=== PATIENT | female | born 1950 | race Caucasian/White ===

== ENCOUNTER → 2017-10-25 | Outpatient (CLI) | payer OTHER ==
[2017-10-25] MEDS: LIDOCAINE 1% Multi-Dose 20 ML VIAL. ID (13:15)
[2017-10-25] MEDS: BUPIVACAINE MPF 0.5% 10 ML VIAL for KCIC. IJ (13:15)
[2017-10-25] MEDS: methylPREDNISolone ACETATE 40 MG/ML VIAL. INT ART (13:15)
[2017-10-25] MEDS: IOHEXOL 300 MG/ML 50 ML VIAL. INT ART (13:15)
== END | disposition home or self-care (01) ==
LOC: KCIC 12:14
DX: M25.552 Pain in left hip (principal); G89.29 Other chronic pain
CPT/HCPCS: 20610; 77002; J1030; Q9967

== ENCOUNTER → 2018-02-12 | Outpatient (CLI) | payer MEDICARE, OTHER ==
[2018-02-12 10:36] LABS: ADD MAN DIFF? NO
[2018-02-12 10:44] LABS: BASO # 0.1 x10^3/uL (0.0-0.2); BASO % 1 % (0-3); EOS # 0.4 x10^3/uL (0.0-0.7); EOS % 9 % (0-3); HEMOGLOBIN 12.9 g/dL (12.0-15.5); LYMPH # 1.1 x10^3/uL (1.0-4.8); LYMPH % 22 % (24-48); MEAN CORPUSCULAR HEMOGLOBIN 32 pg (25-35); MEAN CORPUSCULAR HGB CONC 35 g/dL (31-37); MEAN CORPUSCULAR VOLUME 92 fL (79-100); MONO # 0.4 x10^3/uL (0.0-1.1); MONO % 9 % (0-9); NEUT % 60 % (31-73); PLATELET COUNT 209 x10^3/uL (140-400); RED BLOOD COUNT 4.02 x10^6/uL (3.50-5.40)
[2018-02-12 11:09] LABS: ALBUMIN 3.8 g/dL (3.4-5.0); BLOOD UREA NITROGEN 13 mg/dL (7-20); CALCIUM 8.6 mg/dL (8.5-10.1); CREATININE 0.9 mg/dL (0.6-1.0); GFR 62.8; GLUCOSE 112 mg/dL (70-99); POTASSIUM 4.5 mmol/L (3.5-5.1); SODIUM 138 mmol/L (136-145)
[2018-02-12 11:10] LABS: ANION GAP 11 (6-14); CARBON DIOXIDE 22 mmol/L (21-32); CHLORIDE 105 mmol/L (98-107); PARTIAL THROMBOPLASTIN TIME 25 SEC (24-38); PROTHROMBIN TIME PATIENT 12.7 SEC (11.7-14.0)
[2018-02-12 11:34] LABS: BILIRUBIN,URINE NEGATIVE (NEG); CLARITY,URINE CLEAR; COLOR,URINE YELLOW; GLUCOSE,URINE NEGATIVE (NEG); NITRITE,URINE NEGATIVE (NEG); PH,URINE 5.5; PROTEIN,URINE NEGATIVE (NEG-TRACE); UROBILINOGEN,URINE 0.2 mg/dL (0.2 mg/dL)
[2018-02-12 11:46] LABS: BACTERIA,URINE 0 /HPF (0-FEW); RBC,URINE 0 /HPF (0-2); WBC,URINE 0 /HPF (0-4)
[2018-02-12 12:43] LABS: SEDIMENTATION RATE 4 (0-25)
[2018-02-13 08:34] LABS: MRSA BY PCR Negative (Negative)
== END | disposition home or self-care (01) ==
LOC: SURGPAT 09:18
DX: Z01.818 Encounter for other preprocedural examination (principal); M17.12 Unilateral primary osteoarthritis, left knee; E78.5 Hyperlipidemia, unspecified; E78.00 Pure hypercholesterolemia, unspecified; K21.9 Gastro-esophageal reflux disease without esophagitis; F32.9 Major depressive disorder, single episode, unspecified
CPT/HCPCS: 36415; 71046; 80048; 81001; 82040; 82306; 85025; 85610; 85651; 85730; 87641; 93005

== ENCOUNTER 2018-03-06 05:39 | Inpatient (IN) | payer MEDICARE, OTHER ==
--- NOTE | 2018-03-05 15:03 | PDOC1 ---
History and Physical Date of Admission Date of Admission DATE: 03/06/18 Identification/Chief Complaint Chief Complaint right knee osteoarthritis pain Source Source: Chart review History of Present Illness History of Present Illness The patient is a 67 y/o female with right knee osteoarthritis pain. She finished an Orthovisc series on 01.04.2018, which did not provide much symptomatic relief. She ambulates without assistive devices. The knee pain is constant and she states it aches all the time. She has a history of a left total knee arthroplasty on 05.10.16, which is doing well. Past Medical History Past Medical History Schwannoma and causalgia of RLE Cardiovascular: HTN, Hyperlipidemia GI: GERD Psych: Anxiety, Depression Musculoskeletal: Osteoarthritis Past Surgical History Past Surgical History: Mastectomy, Total knee replacement (left - 05/10/16), Hysterectomy, Other (CTR, TRF) Family History Family History: Cancer, Diabetes, Osteo Arthiritis, Other (osteoporosis ) Social History Smoke: No ALCOHOL: none Drugs: None Current Medications Current Medications Current Medications Morphine Sulfate 5 mg/Ketorolac Tromethamine 30 mg/Ropivacaine 60 ml/ Epinephrine HCl 0.5 mg/Sodium Chloride 100 ml @ 100 mls/hr 1X ONCE INT ART ; Start 03/06/18 at 06:00; Stop 03/06/18 at 06:59 Active Scripts Active Reported Lyrica (Pregabalin) 75 Mg Capsule 1 Cap PO DAILY PRN Ibuprofen 800 Mg Tablet 800 Mg PO BID PRN Lamotrigine 150 Mg Tablet 2 Tab PO HS Bupropion Xl (Bupropion Hcl) 150 Mg Tab.er.24h 1 Tab PO DAILYWBKFT Seroquel (Quetiapine Fumarate) 200 Mg Tablet 1 Tab PO QHS Losartan Potassium 100 Mg Tablet 100 Mg PO DAILY Paroxetine Hcl 20 Mg Tablet 25 Mg PO DAILY Allergies Allergies: Coded Allergies: No Known Drug Allergies (Unverified , 05/10/16) Physical Exam General: Alert, Oriented X3, Cooperative, No acute distress HEENT: Atraumatic, EOMI Lungs: Normal air movement Heart: RRR Abdomen: Soft Extremities: No clubbing, No cyanosis, No edema, Normal pulses, Other (RIGHT KNEE: Palpable transmitter device in medial soft tissues. Trce effusion. Tenderness on the medial and lateral joint lines. Range of motion is 5-115 degrees. There is crepitus with range of motion, and pain at the extremes of motion. The knee is stable to varus and valgus stress without subluxation or laxity. Muscle strength is normal (5/5) for quadriceps and hamstrings, and muscle tone is normal. The skin is normal with no scars, rashes, lesions or ulcers. Light touch sensation is intact. No edema and no varicosities. Dorsalis pedis pulse is intact and capillary refill is normal. ) Skin: No rashes, No breakdown, No significant lesion Neuro: Normal speech, Sensation intact Psych/Mental Status: Mental status NL, Mood NL Images Images IMAGING REPORT Joint survey, hips knees and ankles Clinical information: Preoperative for total knee arthroplasty Comparison: 04/18/2016 Findings Bones: The angle between the right hip-ankle mechanical axis and the femoral shaft is 5 degrees. The angle between the left hip-ankle mechanical axis and the femoral shaft is 5 degrees. From hip to ankle, the right lower extremity is in near normal alignment, perhaps 0.5 degrees varus. From hip to ankle, the left lower extremity is in 2 valgus, near normal alignment compared to the 2016 film which showed severe varus malalignment. Joints: There is mild narrowing of the right knee joint medially. The prior severely arthritic varus left knee now has a total knee arthroplasty in good alignment. The hips and ankles show minimal degenerative changes. Soft tissue: Subcutaneous metallic electronic device is seen running the entire course of the right lower extremity. This is unchanged from 2016. Impression: Trace varus alignment of the right knee. Left total knee arthroplasty. The difference between the mechanical axis and femoral shaft anatomic axis is 5 degrees bilaterally. Subcutaneous electronic device right lower extremity. Dictated and Signed Using Voice Recognition Software Patrick Stark MD VTE Prophylaxis Ordered VTE Prophylaxis Devices: Yes VTE Pharmacological Prophylaxi: Yes Assessment/Plan Assessment/Plan Right knee osteoarthritis pain. The patient is a 67 year old female with right knee osteoarthritis. She would like to proceed with total knee replacement. We will send her to the [facility] preoperatively, and she will schedule at her convenience. We discussed the risks and benefits of knee replacement including bleeding, infection, post-operative stiffness, instability, edelmira-prosthetic fracture, DVT and PE. I plan to do bipolar cautery due to the transmitter in her right lower extremity. I explained that there is a risk of the transmitter being damaged during surgery. All questions were answered. She would like to proceed with the surgery to improve her pain and range of motion. Follow up with me 10-14 days after surgery. QUINTEN WEBER Mar 05, 2018 15:03
[~2018-03-06] VITALS: Ht 172.7 cm; Wt 76.2 kg
[~2018-03-06 05:39] MED LIST: ALPR1TAB2 PO; ASPI-252 PO; BUPR150T6 PO; CELE200C PO; FAMO-63 PO; FERR325T14 PO; FLUT9.9S NS; IBUP-1060 PO; LAMO150T2 PO; LAMO300T2 PO; LORA10TA68 PO; LOSA100T6 PO; LOSA25TA4 PO; OXCA150T3 PO; OXYC-323 PO; PARO20TA3 PO; PARO25TA3 PO; PREG150C PO; PREG75CA PO; QUET200T4 PO; QUET300T5 PO; TOBRAMYCIN POWDER 1.2 GM VIAL. ONE; VANCOMYCIN 1 GM VIAL. ONE
[2018-03-06] MEDS ORDERED: MORPHINE SULFATE 5 MG, KETOROLAC 30MG VIAL 30 MG, ROPIVacaine 0.5% PF 60 ML, EPINEPHrin... INT ART ONE ×5 (06:00)
[2018-03-06] MEDS ORDERED: HYDROcodone/APAP 7.5/325MG 1 TAB TABLET PO PRN (06:00)
[2018-03-06] MEDS ORDERED: CELECOXIB 100 MG CAPSULE. PO PRN (06:00)
[2018-03-06] MEDS ORDERED: TRANEXAMIC ACID 1,000 MG in IV NS 50ML -- 1ST BAG INJ ONE (06:00)
[2018-03-06] MEDS ORDERED: CELE200C PO (06:45)
[2018-03-06] MEDS ORDERED: MIDAZOLAM HCL/PF 2 MG/2 ML VIAL. ONE (06:47)
[2018-03-06] MEDS ORDERED: PROPOFOL 20 ML IV ONE (06:47)
[2018-03-06] MEDS ORDERED: fentaNYL PF VIAL 250 MCG/5 ML VIAL ONE (06:47)
[2018-03-06] MEDS ORDERED: LIDOCAINE 2% PF Vial for OR 5 ML VIAL. ONE (06:47)
[2018-03-06] MEDS ORDERED: PROCHLORPERAZINE 10 MG/2 ML VIAL. IV PRN ×2 (07:00→09:45)
[2018-03-06] MEDS ORDERED: fentaNYL PF VIAL 100 MCG/2 ML VIAL IV PRN ×3 (07:00→09:45)
[2018-03-06] MEDS ORDERED: LIDOCAINE 1% PF 2 ML VIAL. ID PRN (07:00)
[2018-03-06] MEDS ORDERED: IV RINGERS,LACTATED 1000ML 1,000 ML IV SCH (07:00)
[2018-03-06] MEDS ORDERED: ONDANSETRON PF 4 MG/2 ML VIAL. IV PRN (07:00)
[2018-03-06] MEDS ORDERED: ePHEDrine PF IN SALINE 50 MG/5 ML DISP.SYRIN IV ONE (07:30)
[2018-03-06] MEDS ORDERED: PHENYLEPHRINE in 0.9% NACL PF 1 MG/10 ML SYRINGE. IV ONE (07:43)
[2018-03-06] MEDS ORDERED: LABETALOL 20 MG/4 ML DISP.SYRIN. IVP ONE (07:59)
[2018-03-06] MEDS ORDERED: TRANEXAMIC ACID 1,000 MG in IV NS 50ML -- 2ND BAG INJ ONE (08:00)
[2018-03-06] MEDS ORDERED: DEXAMETHASONE SOD PHOS 20 MG/5 ML VIAL. ONE (08:14)
[2018-03-06] MEDS ORDERED: ONDANSETRON PF 4 MG/2 ML VIAL. ONE (08:14)
[2018-03-06] MEDS ORDERED: dilTIAZem IV PUSH 25 MG/5 ML VIAL ONE (08:23)
[2018-03-06] MEDS ORDERED: ESMOLOL 100 MG/10 ML VIAL. IV ONE (09:04)
--- NOTE | 2018-03-06 09:31 | PDOC4 ---
Operative Note Operative Note Date of Procedure: March 06, 2018 Pre-Op Diagnosis: Osteoarthritis right knee Post-Op Diagnosis: Osteoarthritis right knee Procedure: right total knee arthroplasty Surgeon: Chrissy Stark MD Mobile Web Application Developer: Casandra Ramos PA-C Anesthesia: General EBL: 150 mL Specimens Obtained: right knee bone and soft tissue Complications: none Implant Company: [employer] Drains: hemovac plus pain catheter Tourniquet time: 51 Minutes Tourniquet Pressure: 350 mm Hg Indications for Procedure: Arthritis pain unrelieved by nonoperative management. Findings: Severe osteoarthritis with bone on bone contact at the patellofemoral joint, and at the medial tibiofemoral joint, with high grade cartilage loss in all three compartments Implants used: Size 4 right bicruciate stabilized Journey II BCS Oxinium femoral component, size 4 right Journey nonporous tibial baseplate, size 3-4 9 mm right Journey II BCS XLPE articular insert, 32 mm oval Nevaeh II resurfacing patellar component Procedure in Detail: The patient was identified in the preoperative holding area, and the correct right lower extremity was marked by me. The patient was taken to the operating room where the patient was anesthetized by the Department of Anesthesia. Preoperative antibiotics were given intravenously. Tranexamic acid 1 g was given intravenously for intraoperative hemostasis. A "time-out" procedure was performed. The patient was positioned supine on the operative table with a tourniquet on the upper right thigh. The right lower limb was thoroughly prepped and draped in sterile fashion. An impervious stockinet and adhesive drape were used such that the skin was entirely covered. An Vogt leg arroyo was used. The operating team wore personal exhaust-ventilated hoods. The limb was elevated to exsanguinate it, and the tourniquet was inflated. A midline skin incision was made with a scalpel using the patella and tibial tubercle as landmarks. Bipolar electrocautery was used for hemostasis to avoid injury from her implanted nerve stimulator. My assistant fitness manager used rake retractors. A medial parapatellar arthrotomy incision was used with extension into the distal quadriceps tendon. The patella was retracted laterally and Hohmann retractors were now used by my assistant fitness manager. Excess synovium, the menisci, and the cruciate ligaments were resected sharply. The patella was assessed and excess synovium and osteophytes around the patellar articulation were removed. The patella was measured with a caliper, cut freehand with a saw using caliper measurements, sized, and then drilled for an oval three-pegged patella component. Periarticular anesthetic injection was used in the suprapatellar pouch and distal quadriceps muscle. Whitesides's line and the transepicondylar axis were marked on the femur. An intra-medullary 5 degree cutting guide was pinned to the femur, and a distal femoral cut was made with an oscillating saw. No additional distal femoral resection was required. My assistant fitness manager held Hohmann retractors and an Army-Carrington retractor to protect the medial and lateral collateral ligaments, the patellar tendon, the skin and the other soft tissues. A posterior referencing guide was applied with external rotation of 5 to match Whitesides line. A 5-in-1 Journey II cutting guide was then applied and pinned to the femur. The posterior, anterior, and all chamfer cuts were made with the oscillating saw. An extramedullary guide was pinned to the tibia and rotational alignment and the planned resection thickness assessed. An external alignment bernardino was used to verify the planned cut in the varus-valgus plane and regarding posterior slope referencing the tibial tubercle, the tibial shaft, the ankle joint, and the second metatarsal. The upper tibia was cut made with an oscillating saw. My assistant fitness manager held Hohmann retractors and a posterior cruciate ligament retractor to protect the medial and lateral collateral ligaments, the patellar tendon, the skin, the peroneal nerve and the other soft tissues as well as the stimulator. The upper tibia was sized with a trial baseplate. The posterior compartment was cleared of osteophytes and loose bodies. Periarticular anesthetic injection was used in the posterior compartment. The box cut for a posterior stabilized component was made. A preliminary reduction was performed with a trial femur, trial tibial baseplate and trial polyethylene. Soft-tissue balancing was now performed, and extension and rotation of the alignments was checked using a guide bernardino in the tibial trial and a guide pin in the femur. No additional releases were required. The stability was assessed using different thicknesses of tibial articular surface to find satisfactory stability and good range of motion. The rotation of the tibial component was marked on the upper tibia. Final trial reduction was now performed verifying patella tracking and tibiofemoral stability and alignment. The tibia preparation was completed with a drill, saw, and fin punch at the previously noted rotation. The final implants were verified and opened. Outer gloves were changed by the operating team. The bone cuts were washed thoroughly with the Blanche InterPulse device and dried. I asked Ms. Ramos to leave the room while the cement was mixed. Two packages of Plummer + Nephew Rally HV bone cement were mixed in powdered form with Vancomycin 1gm and Tobramycin 1.2 gm, and then vacuum-mixed with the monomer, and placed into a cement gun. The cut surfaces of the bone were thoroughly dried with Arias-tip suction and with laparotomy sponges for cement interdigitation. The final components were cemented into place. The knee was kept at full extension while the cement hardened, and excess cement was removed. Tranexamic acid 1 g was redosed intravenously for additional intraoperative hemostasis. The tourniquet was released, and bipolar electrocautery was used for hemostasis. A final periarticular anesthetic injection was used for pain relief. Richard returned. A final check of trhcb-dx-fkyftm and stability was made, and the polyethylene implant final size was chosen. The polyethylene implant was secured to the tibial baseplate, and the knee was reduced a final time and range of motion and stability was confirmed. Thorough irrigation was used. Hemovac and pain catheter were used.The arthrotomy was closed with interrupted tugkhf-ub-lwsls # 1 PDS suture. The arthrotomy incision was then run with #1 STRATAFIX Symmetric PDS Plus Knotless suture. The subcutaneous tissues were closed with #2-0 Vicryl by Ms. Ramos. The skin was approximated with oniel by Ms Ramos. The skin incision was then covered and reinforced with Acticoat and KARLA single use negative pressure dressing, all applied by Ms. Ramos. Needle and sponge counts were correct. There were no apparent complications. The patient returned to the recovery room in stable condition. CHRISSY STARK MD Mar 06, 2018 09:31
[2018-03-06] MEDS ORDERED: SEVOFLURANE 61 TO 120 MINUTES. IH ONE (09:32)
[2018-03-06] MEDS ORDERED: ZOLPIDEM 5 MG TABLET. PO PRN (09:45)
[2018-03-06] MEDS ORDERED: ACETAMINOPHEN 325 MG TABLET. PO PRN (09:45)
[2018-03-06] MEDS ORDERED: traMADol 50 MG TABLET PO PRN ×2 (09:45)
[2018-03-06] MEDS ORDERED: MORPHINE SULFATE 2 MG/ML VIAL. IV PRN (09:45)
[2018-03-06] MEDS ORDERED: diphenhydrAMINE 50 MG/ML VIAL IV PRN (09:45)
[2018-03-06] MEDS ORDERED: MORPHINE SULFATE 10 MG/ML VIAL. IV PRN (09:45)
[2018-03-06] MEDS ORDERED: oxyCODONE/APAP 7.5/325 1 TAB TABLET PO PRN (09:45)
[2018-03-06] MEDS ORDERED: MORPHINE SULFATE 4 MG/ML VIAL. IV PRN ×2 (09:45)
[2018-03-06] MEDS ORDERED: CALCIUM CARBONATE 500 MG TAB.CHEW PO PRN (09:45)
[2018-03-06] MEDS ORDERED: DEXTROSE 50% 25 GM / 50ML DISP.SYRIN. IV PRN (09:45)
[2018-03-06] MEDS ORDERED: METOCLOPRAMIDE HCL 10 MG/2 ML VIAL. IV PRN (09:45)
[2018-03-06] MEDS: IV DEXTROSE 5 %-0.45 % NACL 1,000 ML IV SCH ×2 (09:45→19:58)
[2018-03-06] MEDS ORDERED: oxyCODONE/APAP 5/325 1 TAB TABLET PO PRN (09:45)
[2018-03-06] MEDS ORDERED: HYDROcodone/APAP 10/325 1 TAB TABLET PO PRN (09:45)
[2018-03-06] MEDS ORDERED: PROCHLORPERAZINE 5 MG TABLET. PO PRN (09:45)
[2018-03-06] MEDS ORDERED: 0.9 % SODIUM CHLORIDE 10 ML DISP.SYRIN. IV PRN (09:45)
--- NOTE | 2018-03-06 10:04 | EKG ---
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
[2018-03-06 10:10] LABS: CALCIUM 8.3 mg/dL (8.5-10.1); CREATININE 0.9 mg/dL (0.6-1.0); GFR 62.8; POTASSIUM 4.4 mmol/L (3.5-5.1)
[2018-03-06] MEDS: MORPHINE SULFATE 2 MG/ML VIAL. IV PRN ×2 (10:26→11:12)
--- NOTE | 2018-03-06 10:44 | RAD ---
EXAM: AP and crosstable lateral views of the right knee DATE: 03/06/2018 10:16 AM INDICATION: POST OP RIGHT KNEE REPLACEMENT COMPARISON: 05/10/2016 FINDINGS: Postoperative changes of right total knee arthroplasty are now seen, in good alignment without definite hardware application. Expected postoperative soft tissue changes are seen including drain and skin oniel. No evidence of acute fracture or dislocation. IMPRESSION: 1. Right total knee arthroplasty, in good alignment without definite hardware complication or fracture. Electronically signed by: Wellington Paniagua MD (03/06/2018 10:40 AM) [facility]
[2018-03-06 11:13] LABS: BASO # 0.1 x10^3/uL (0.0-0.2); BASO % 1 % (0-3); EOS # 0.2 x10^3/uL (0.0-0.7); EOS % 2 % (0-3); HEMATOCRIT 37.8 % (36.0-47.0); HEMOGLOBIN 12.9 g/dL (12.0-15.5); LYMPH # 2.1 x10^3/uL (1.0-4.8); LYMPH % 20 % (24-48); MEAN CORPUSCULAR HEMOGLOBIN 32 pg (25-35); MEAN CORPUSCULAR HGB CONC 34 g/dL (31-37); MEAN CORPUSCULAR VOLUME 95 fL (79-100); MONO # 0.3 x10^3/uL (0.0-1.1); MONO % 3 % (0-9); NEUT # 7.6 x10^3uL (1.8-7.7); NEUT % 73 % (31-73); PLATELET COUNT 214 x10^3/uL (140-400); RED CELL DISTRIBUTION WIDTH 13.8 % (11.5-14.5); WHITE BLOOD COUNT 10.4 x10^3/uL (4.0-11.0)
[2018-03-06] MEDS ORDERED: METOPROLOL TARTRATE 5 MG/5 ML VIAL. IVP PRN (11:30)
[2018-03-06] MEDS: fentaNYL PF VIAL 100 MCG/2 ML VIAL IV PRN (12:20)
[2018-03-06 12:25] VITALS: BP 140/95
[2018-03-06] MEDS ORDERED: METOPROLOL TART IMMED RELEASE 25 MG TABLET. PO ONE (12:30)
--- NOTE | 2018-03-06 12:38 | PDOC2 ---
CARDIAC CONSULT DATE OF CONSULT Date of Consult DATE: 03/06/18 TIME: 1100 REASON FOR CONSULT Reason for Consult: AFIB RVR new onset REFERRING PHYSICIAN Referring Physician: Petra SOURCE Source: Chart review, Patient HISTORY OF PRESENT ILLNESS HISTORY OF PRESENT ILLNESS This is a pleasant 67 yo female admitted for planned RTKA. The surgery was successful and currently she is drowsy but arousable and Ox3 and surgical pain is controlled. Postoperatively she was noted with tachycardia and afib was confirmed. His HR was in the 130s and 140s and was given cardizem IV bolus. I evaluated her and provided IV lopressor since no significant response to cardizem. Presently denies any SOA, CP nor palpiations. Denies any prior hx of AFIB, CVA, clotting disorders or bleeding disorders. She does not take any ASA but takes losartan, lamictal, wellbutrin and lyrica. Denies any ETOH, tobacco or recreational drug use and no hx of excessive caffeine use nor stimulants. She has not seen a director clinical applications before. PAST MEDICAL HISTORY Cardiovascular: HTN, Hyperlipidemia Pulmonary: No pertinent hx CENTRAL NERVOUS SYSTEM: Periperal neuropathy, Other (No pertinent history) Heme/Onc: No pertinent hx, Cancer (breast) Hepatobiliary: No pertinent hx Psych: Anxiety, Bipolar, Depression Musculoskeletal: Osteoarthritis Rheumatologic: No pertinent hx Infectious disease: No pertinent hx ENT: Allergic Rhinitis, Other (sinusitis) Renal/: No pertinent hx Endocrine: No pertinent hx Dermatology: No pertinent hx PAST SURGICAL HISTORY Past Surgical History: Arthroscopy (right ankle surgery), Mastectomy (left ), Total knee replacement (Left and right), Tonsillectomy, Hysterectomy FAMILY HISTORY Family History noncontributory to CV SOCIAL HISTORY Smoke: No ALCOHOL: none Drugs: None Lives: with Family CURRENT MEDICATIONS CURRENT MEDICATIONS Current Medications Medications (Trade) Dose Ordered Sig/Dali Route PRN Reason Start Time Stop Time Status Last Admin Dose Admin Morphine Sulfate 5 mg/Ketorolac Tromethamine 30 mg/Ropivacaine 60 ml/Epinephrine HCl 0.5 mg/Sodium Chloride 100 ml @ 100 mls/hr 1X ONCE INT ART 03/06/18 06:00 03/06/18 06:59 DC 03/06/18 08:56 Morphine Sulfate (Morphine Sulfate) 1 mg PRN Q10MIN PRN IV SEVERE PAIN 03/06/18 07:00 03/07/18 06:59 03/06/18 11:12 Ringer's Solution 1,000 ml @ 30 mls/hr Q24H IV 03/06/18 07:00 03/06/18 18:59 03/06/18 06:45 Acetaminophen/ Hydrocodone Bitart (Lortab 7.5/325) 2 tab 1X PREOP PRN PO PRIOR TO PROCEDURE 03/06/18 06:00 03/06/18 18:00 03/06/18 06:48 Cefazolin Sodium/ Dextrose 50 ml @ 100 mls/hr 1X PREOP PRN IV PRIOR TO PROCEDURE 03/06/18 06:00 03/06/18 18:00 03/06/18 07:28 Tranexamic Acid 1000 mg/Sodium Chloride 60 ml @ 60 mls/hr 1X PERIOP ONCE INJ 03/06/18 06:00 03/06/18 06:59 DC 03/06/18 07:35 Tranexamic Acid 1000 mg/Sodium Chloride 60 ml @ 60 mls/hr 1X PERIOP ONCE INJ 03/06/18 08:00 03/06/18 08:59 DC 03/06/18 07:35 Acetaminophen/ Hydrocodone Bitart (Lortab 10/325) 1 tab PRN Q3HRS PRN PO MODERATE PAIN, 2nd CHOICE 03/06/18 09:45 03/06/18 12:20 Fentanyl Citrate (Fentanyl 2ml Vial) 50 mcg PRN Q1HR PRN IV PAIN, 2nd CHOICE 03/06/18 09:45 03/06/18 12:20 Metoprolol Tartrate (Lopressor Vial) 5 mg 1X PACU PRN IVP TACHYCARDIA 03/06/18 11:30 03/06/18 11:09 Metoprolol Tartrate (Lopressor) 25 mg 1X ONCE PO 03/06/18 12:30 03/06/18 12:31 03/06/18 12:21 ALLERGIES ALLERGIES: Coded Allergies: No Known Drug Allergies (Unverified , 03/06/18) ROS Review of System 14 point ROS evaluated with pertinent positives noted per HPI PHYSICAL EXAM General: Oriented X3, Cooperative, No acute distress, Other (drowsy) HEENT: Atraumatic, Mucous membr. moist/pink Lungs: Clear to auscultation, Normal air movement Heart: Other (AFIB RVR) Abdomen: Soft, No tenderness Extremities: No cyanosis, No edema Skin: No breakdown, No significant lesion, Other (right knee surgical incision wrapped and with hemovac drain with sanguinous drain. ) Neuro: Normal speech, Sensation intact Psych/Mental Status: Mental status NL, Mood NL MUSCULOSKELETAL: Osteoarthritic changes both hands VITALS VITALS Vital Signs Date Time Temp Pulse Resp B/P (MAP) Pulse Ox O2 Delivery O2 Flow Rate FiO2 03/06/18 12:21 112 140/95 03/06/18 12:20 93 Nasal Cannula 4.0 03/06/18 11:30 18 03/06/18 10:45 98.3 98.3 LABS Lab: Laboratory Tests Test 03/06/18 09:55 White Blood Count 10.4 x10^3/uL (4.0-11.0) Red Blood Count 4.00 x10^6/uL (3.50-5.40) Hemoglobin 12.9 g/dL (12.0-15.5) Hematocrit 37.8 % (36.0-47.0) Mean Corpuscular Volume 95 fL (79-100) Mean Corpuscular Hemoglobin 32 pg (25-35) Mean Corpuscular Hemoglobin Concent 34 g/dL (31-37) Red Cell Distribution Width 13.8 % (11.5-14.5) Platelet Count 214 x10^3/uL (140-400) Neutrophils (%) (Auto) 73 % (31-73) Lymphocytes (%) (Auto) 20 % (24-48) Monocytes (%) (Auto) 3 % (0-9) Eosinophils (%) (Auto) 2 % (0-3) Basophils (%) (Auto) 1 % (0-3) Neutrophils # (Auto) 7.6 x10^3uL (1.8-7.7) Lymphocytes # (Auto) 2.1 x10^3/uL (1.0-4.8) Monocytes # (Auto) 0.3 x10^3/uL (0.0-1.1) Eosinophils # (Auto) 0.2 x10^3/uL (0.0-0.7) Basophils # (Auto) 0.1 x10^3/uL (0.0-0.2) Sodium Level 138 mmol/L (136-145) Potassium Level 4.4 mmol/L (3.5-5.1) Chloride Level 107 mmol/L (98-107) Carbon Dioxide Level 23 mmol/L (21-32) Anion Gap 8 (6-14) Blood Urea Nitrogen 15 mg/dL (7-20) Creatinine 0.9 mg/dL (0.6-1.0) Estimated GFR (Cockcroft-Gault) 62.8 Glucose Level 222 mg/dL (70-99) Calcium Level 8.3 mg/dL (8.5-10.1) Magnesium Level 2.0 mg/dL (1.8-2.4) Thyroid Stimulating Hormone (TSH) 4.714 uIU/mL (0.358-3.74) ASSESSMENT/PLAN ASSESSMENT/PLAN 1. AFIB RVR: New onset. likely due to surgical stress response. 2. S/P RTKA: today and tolerated procedure well. 3. HTN: controlled 4. HLP 5. Hx of bipolar disorder 6. Hx of breast CA: with past mastectomy and chemotherapy. Recommendations 1. IV lopressor x1. Start on metoprolol 25 mg po q6hrs. Hold losartan to accomodate BB 2. Presently on 325 mg po bid for VTE prophylaxis in relation to RTKA. [id number]- VASc is 3. If AFIB is sustained overnight then would recommend switching to coumadin or eliquis moving forward for stroke prevention as well as for VTE prophylaxis. 3. Will also plan for outpt event monitor and note AFIB burden and further need of continued anticoagulation. If pt does not convert to SR then adequate anticoagulation is is warranted if outpt cardioversion is to be considered. 4. TSH, CBC and Mg. 5. TTE today WILMA ARIAS APRN Mar 06, 2018 12:38
[2018-03-06 15:00] VITALS: BP 113/58
--- NOTE | 2018-03-06 16:45 | CARD ---
MR#: [id number] Date of Study: 03/06/2018 Ordering Physician: WILMA ARIAS, Referring Physician: CHRISSY IGLESIAS Tech: Sabrina Colón RDCS APPROVED REPORT EXAM: Two-dimensional and M-mode echocardiogram with Doppler and color Doppler. Other Information Quality : Good Rhythm : NSR INDICATION Atrial Fibrillation 2D DIMENSIONS RVDd2.1 (2.9-3.5cm)Left Atrium(2D)3.9 (1.6-4.0cm) IVSd1.0 (0.7-1.1cm)Aortic Root(2D)2.9 (2.0-3.7cm) LVDd4.6 (3.9-5.9cm)LVOT Diameter2.0 (1.8-2.4cm) PWd1.0 (0.7-1.1cm)LVDs2.4 (2.5-4.0cm) FS (%) 30.0 %SV77.8 ml LVEF(%)60.0 (>50%) Aortic Valve AoV Peak Bradley.138.5cm/sAoV VTI29.9cm AO Peak GR.7.7mmHgLVOT VTI 27.05cm AO Mean GR.4mmHgAVA (VTI)2.90cm2 Mitral Valve MV E Yzmhbcpf80.2cm/sMV DECEL RYNI576ap MV A Igqolbku79.9cm/sE/A Ratio0.8 TDI Lateral E' P. V8.03cm/sMedial E' P. V9.37cm/s E/Lateral E'7.2E/Medial E'6.2 Tricuspid Valve TR P. Ytqgqezd101mk/sRAP GETNTMVA4hlKs TR Peak Gr.05jzCpTKPN43thQl Pulmonary Vein S1 Jexlowak30.8cm/sS2 Nzyufnyp36.43cm/s D2 Xoorgcuc08.4cm/s LEFT VENTRICLE The left ventricle is normal size. There is normal left ventricular wall thickness. The left ventricu lar systolic function is normal. The Ejection Fraction is 55-60%. There is normal LV segmental wall m otion. Transmitral Doppler flow pattern is Grade I-abnormal relaxation pattern. RIGHT VENTRICLE The right ventricle is normal size. The right ventricular systolic function is normal. ATRIA The left atrium size is normal. The right atrium size is normal. The interatrial septum is intact wit h no evidence for an atrial septal defect or patent foramen ovale as noted on 2-D or Doppler imaging. AORTIC VALVE The aortic valve is calcified but opens well. Doppler and Color Flow revealed no significant aortic r egurgitation. There is no significant aortic valvular stenosis. MITRAL VALVE The mitral valve is calcified but opens well. There is no evidence of mitral valve prolapse. There is no mitral valve stenosis. Doppler and Color Flow revealed no mitral valve regurgitation noted. TRICUSPID VALVE The tricuspid valve is normal in structure and function. Doppler and Color Flow revealed trace to mil d tricuspid regurgitation. The PA pressure was estimated at 24 mmHg. There is no tricuspid valve sten osis. PULMONIC VALVE The pulmonic valve is not well visualized. Doppler and Color Flow revealed no pulmonic valvular regur gitation. There is no pulmonic valvular stenosis. GREAT VESSELS The aortic root is normal in size. The ascending aorta is not well seen. The IVC is normal in size an d collapses >50% with inspiration. PERICARDIAL EFFUSION There is no evidence of significant pericardial effusion. Critical Notification Critical Value: No <Conclusion> The left ventricular systolic function is normal. The Ejection Fraction is 55-60%. There is normal LV segmental wall motion. Transmitral Doppler flow pattern is Grade I-abnormal relaxation pattern. Trace to mild tricuspid regurgitation. The PA pressure was estimated at 24 mmHg. There is no evidence of significant pericardial effusion. Signed by : Johnnie Ramachandran, Electronically Approved : 03/06/2018 16:43:31
[2018-03-06] MEDS: METOPROLOL TART IMMED RELEASE 25 MG TABLET. PO SCH ×2 (17:34→23:41)
[2018-03-06] MEDS: KETOROLAC 30MG VIAL 30 MG, BUPIVACAINE MPF 0.25% 20 ML, EPINEPHrine 0.5 MG in TOTAL VOL... INT ART SCH (17:34)
[2018-03-06] MEDS: FERROUS SULFATE 325 MG TABLET. PO SCH (17:34)
[2018-03-06 19:30] VITALS: BP 119/57
[2018-03-06] MEDS: ASPIRIN ENTERIC COATED 325 MG TABLET.DR. PO SCH (20:39)
[2018-03-06] MEDS: CELECOXIB 100 MG CAPSULE. PO SCH (20:39)
[2018-03-06 23:30] VITALS: BP 111/57
[2018-03-07] VITALS (7 sets, daily range): BP systolic 114–163; BP diastolic 48–62
[2018-03-07] MEDS: IV DEXTROSE 5 %-0.45 % NACL 1,000 ML IV SCH (03:34)
[2018-03-07] MEDS: METOPROLOL TART IMMED RELEASE 25 MG TABLET. PO SCH ×4 (06:00→23:57)
[2018-03-07] MEDS ORDERED: MAGNESIUM HYDROXIDE 2,400 MG/30 ML ORAL.SUSP. PO PRN (06:00)
[2018-03-07] MEDS: KETOROLAC 30MG VIAL 30 MG, BUPIVACAINE MPF 0.25% 20 ML, EPINEPHrine 0.5 MG in TOTAL VOL... INT ART SCH (06:00)
[2018-03-07] MEDS: ASPIRIN ENTERIC COATED 325 MG TABLET.DR. PO SCH ×2 (08:10→20:06)
[2018-03-07] MEDS: FERROUS SULFATE 325 MG TABLET. PO SCH ×2 (08:10→16:58)
[2018-03-07] MEDS: SENNOSIDES/DOCUSATE 8.6/50MG TABLET. PO SCH (08:10)
[2018-03-07] MEDS: MULTIVITAMIN with MINERAL TABLET. PO SCH (08:10)
[2018-03-07] MEDS: CELECOXIB 100 MG CAPSULE. PO SCH ×2 (08:11→20:06)
[2018-03-07] MEDS ORDERED: PREG75CA PO (08:16)
--- NOTE | 2018-03-07 13:57 | PDOC ---
PROGRESS NOTES Subjective Subjective Pt had new onset A.fib RVR in PACU, but RN states she has been in sinus rhythm since. Pt states her knee pain is minimal. Objective Vital Signs Vital Signs Date Time Temp Pulse Resp B/P (MAP) Pulse Ox O2 Delivery O2 Flow Rate FiO2 03/07/18 11:59 61 132/66 03/07/18 11:00 98.4 14 96 98.4 03/07/18 08:00 Room Air 03/06/18 15:00 2.0 Physical Exam Sitting up in recliner. Postop dressing c/d/i. Hemovac and IAC intact. Thigh and calf soft and nontender with negative Patience's sign. She state she has some sensitivity of the lower leg, which has been present for years. Good df/pf at foot. Peripheral pulses and light touch sensation intact. Labs Laboratory Tests Test 03/06/18 09:55 White Blood Count 10.4 x10^3/uL (4.0-11.0) Red Blood Count 4.00 x10^6/uL (3.50-5.40) Hemoglobin 12.9 g/dL (12.0-15.5) Hematocrit 37.8 % (36.0-47.0) Mean Corpuscular Volume 95 fL (79-100) Mean Corpuscular Hemoglobin 32 pg (25-35) Mean Corpuscular Hemoglobin Concent 34 g/dL (31-37) Red Cell Distribution Width 13.8 % (11.5-14.5) Platelet Count 214 x10^3/uL (140-400) Neutrophils (%) (Auto) 73 % (31-73) Lymphocytes (%) (Auto) 20 % (24-48) Monocytes (%) (Auto) 3 % (0-9) Eosinophils (%) (Auto) 2 % (0-3) Basophils (%) (Auto) 1 % (0-3) Neutrophils # (Auto) 7.6 x10^3uL (1.8-7.7) Lymphocytes # (Auto) 2.1 x10^3/uL (1.0-4.8) Monocytes # (Auto) 0.3 x10^3/uL (0.0-1.1) Eosinophils # (Auto) 0.2 x10^3/uL (0.0-0.7) Basophils # (Auto) 0.1 x10^3/uL (0.0-0.2) Sodium Level 138 mmol/L (136-145) Potassium Level 4.4 mmol/L (3.5-5.1) Chloride Level 107 mmol/L (98-107) Carbon Dioxide Level 23 mmol/L (21-32) Anion Gap 8 (6-14) Blood Urea Nitrogen 15 mg/dL (7-20) Creatinine 0.9 mg/dL (0.6-1.0) Estimated GFR (Cockcroft-Gault) 62.8 Glucose Level 222 mg/dL (70-99) Calcium Level 8.3 mg/dL (8.5-10.1) Magnesium Level 2.0 mg/dL (1.8-2.4) Thyroid Stimulating Hormone (TSH) 4.714 uIU/mL (0.358-3.74) Imaging Postop x-rays reviewed and show a cemented total knee arthroplasty in satisfactory position without apparent complications. Assessment Assessment POD #1 right TKA new onset A.fib RVR in PACU, now in SR Plan Plan of Care Continue PT/OT and aspirin 325mg twice daily for DVT ppx. WBAT with walker. Per RN, has been in SR since on unit. From ortho standpoint, she can be transferred to joint floor. Planning for outpatient therapy at [facility] at discharge. QUINTEN WEBER Mar 07, 2018 13:57
[2018-03-07] MEDS ORDERED: PREGABALIN 75 MG CAPSULE PO SCH (14:00)
[2018-03-07] MEDS ORDERED: IBUP-1060 PO (15:59)
[2018-03-07] MEDS ORDERED: BISACODYL 10 MG SUPP.RECT. PR PRN (16:00)
[2018-03-07] MEDS: PREGABALIN 75 MG CAPSULE PO PRN (18:43)
[2018-03-07] MEDS: HYDROcodone/APAP 7.5/325MG 1 TAB TABLET PO PRN ×2 (20:06→23:59)
[2018-03-07] MEDS: fentaNYL PF VIAL 100 MCG/2 ML VIAL IV PRN (21:12)
[2018-03-08] MEDS: HYDROcodone/APAP 7.5/325MG 1 TAB TABLET PO PRN ×3 (02:13→20:51)
[2018-03-08 03:34] VITALS: BP 90/47
[2018-03-08 05:23] LABS: HEMATOCRIT 28.6 % (36.0-47.0); HEMOGLOBIN 9.9 g/dL (12.0-15.5)
[2018-03-08] MEDS: METOPROLOL TART IMMED RELEASE 25 MG TABLET. PO SCH ×3 (05:55→20:49)
[2018-03-08 07:00] VITALS: BP 113/75
--- NOTE | 2018-03-08 08:49 | EKG ---
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
[2018-03-08] MEDS: SENNOSIDES/DOCUSATE 8.6/50MG TABLET. PO SCH (09:19)
[2018-03-08] MEDS: CELECOXIB 100 MG CAPSULE. PO SCH ×2 (09:19→20:49)
[2018-03-08] MEDS: FERROUS SULFATE 325 MG TABLET. PO SCH ×2 (09:19→17:48)
[2018-03-08] MEDS: ASPIRIN ENTERIC COATED 325 MG TABLET.DR. PO SCH ×2 (09:19→20:49)
[2018-03-08] MEDS: MULTIVITAMIN with MINERAL TABLET. PO SCH (09:19)
--- NOTE | 2018-03-08 09:55 | PDOC ---
WILMA ARIAS OPEN HEARTH FURNACE OPERATOR 03/08/18 0955: CARDIO Progress Notes Date and Time Date of Service 03/08/2018 Time of Evaluation 0930 Subjective Subjective: No Chest Pain, No shortness of breath, No Palpitations, Other ( sitting up, doing well, right knee pain controlled) Vitals Vitals Vital Signs Date Time Temp Pulse Resp B/P (MAP) Pulse Ox O2 Delivery O2 Flow Rate FiO2 03/08/18 09:20 96 Room Air 2.0 03/08/18 07:00 98.2 73 18 113/75 (88) 98.2 Weight Weight [ ] Input and Output Intake and Output Intake and Output 03/08/18 07:00 Intake Total 1980 ml Balance 1980 ml Intake Oral 1980 ml # Voids 5 Laboratory Labs Laboratory Tests Test 03/08/18 05:05 Hemoglobin 9.9 g/dL (12.0-15.5) Hematocrit 28.6 % (36.0-47.0) Mean Corpuscular Hemoglobin Concent 35 g/dL (31-37) Physical Exam HEENT: Neck Supple W Full Motion Chest: Symmetric LUNGS: Clear to Auscultation Heart: S1S2, RRR (SR) Abdomen: Soft N/T Extremities: No Calf Tenderness, Other (right knee insicion covered with dressing dry and intact) Neurology: alert, oriented, follow commands Assessment Assessment 1. AFIB RVR: New onset. likely due to surgical stress response. approximately 7 hours of AFIB, converted to SR with lopressor 2. S/P RTKA: doing well, POD#2 3. HTN: controlled. EF/WM nml with no significant valvular insufficiency. 4. HLP 5. Hx of bipolar disorder 6. Hx of breast CA: with past mastectomy and chemotherapy. 7. Post op anemia: Hgb at 9.9 from 12.9 which is contributing to her hypotension in addition to opioid and BB use. 8. Subclinical hypothyroidism Recommendations 1. Continue with metoprolol and reduce to bid from q6h. Continue with ASA dose as part of her VTE prophylaxis and changing this to daily once the post op BID dosing is completed. . 2. Will arrange for outpt event monitor to rule out paroxysmal episodes and any need for anticoagulation 3. May transfer to with tele. May join joint rehab group. FAINA STONE MD 03/08/18 1602: CARDIO Progress Notes Plan Plan Pt. seen and examined. Agree with above CIGARETTE MACHINES MECHANIC note. Will follow along peripherally. f/u in the office. WILMA ARIAS APRN Mar 08, 2018 09:55 FAINA STONE MD Mar 08, 2018 16:02
[2018-03-08 11:00] VITALS: BP 113/58
[2018-03-08] MEDS: PREGABALIN 75 MG CAPSULE PO PRN (11:20)
--- NOTE | 2018-03-08 13:11 | PDOC ---
PROGRESS NOTES Subjective Subjective Pt states she is more sore today, but overall is doing well. She will be transferred to the joint floor later this afternoon. Objective Vital Signs Vital Signs Date Time Temp Pulse Resp B/P (MAP) Pulse Ox O2 Delivery O2 Flow Rate FiO2 03/08/18 11:24 91 Room Air 03/08/18 11:00 98.2 67 16 113/58 (76) 98.2 03/08/18 10:54 2.0 Physical Exam Sitting in recliner eating lunch. Hemovac and IAC has been removed. KARLA dry and intact. Thigh and calf soft and nontender with negative Patience's sign. She state she has some sensitivity of the lower leg, which has been present for years. Good df/pf at foot. Peripheral pulses and light touch sensation intact. Labs Laboratory Tests Test 03/08/18 05:05 Hemoglobin 9.9 g/dL (12.0-15.5) Hematocrit 28.6 % (36.0-47.0) Mean Corpuscular Hemoglobin Concent 35 g/dL (31-37) Laboratory Tests Test 03/08/18 05:05 Hemoglobin 9.9 g/dL (12.0-15.5) Hematocrit 28.6 % (36.0-47.0) Mean Corpuscular Hemoglobin Concent 35 g/dL (31-37) Assessment Assessment POD #2 right TKA Plan Plan of Care Continue PT/OT and DVT ppx with aspirin. She will be transferred to the joint center this afternoon. Plan for discharge to home with outpatient therapy at [facility] tomorrow. QUINTEN WEBER Mar 08, 2018 13:11
[2018-03-08 15:00] VITALS: BP 101/64
[2018-03-08 19:00] VITALS: BP 111/54
[2018-03-08 23:00] VITALS: BP 103/37
[2018-03-09] VITALS (13 sets, daily range): BP systolic 83–118; BP diastolic 30–63
[2018-03-09] MEDS: HYDROcodone/APAP 7.5/325MG 1 TAB TABLET PO PRN ×2 (01:50→11:33)
[2018-03-09] MEDS: CELECOXIB 100 MG CAPSULE. PO SCH ×2 (09:09→20:50)
[2018-03-09] MEDS: SENNOSIDES/DOCUSATE 8.6/50MG TABLET. PO SCH (09:09)
[2018-03-09] MEDS: MULTIVITAMIN with MINERAL TABLET. PO SCH (09:09)
[2018-03-09] MEDS: FERROUS SULFATE 325 MG TABLET. PO SCH ×2 (09:09→17:11)
[2018-03-09] MEDS: ASPIRIN ENTERIC COATED 325 MG TABLET.DR. PO SCH ×2 (09:09→20:50)
[2018-03-09] MEDS ORDERED: IV NORMAL SALINE 500ML BAG 500 ML IV ONE (09:30)
[2018-03-09 09:59] LABS: HEMATOCRIT 24.3 % (36.0-47.0); HEMOGLOBIN 8.5 g/dL (12.0-15.5)
[2018-03-09] MEDS: METOPROLOL TART IMMED RELEASE 25 MG TABLET. PO SCH ×3 (10:11→20:55)
--- NOTE | 2018-03-09 11:02 | PDOC ---
WILMA ARIAS LOGGING TRACTOR OPERATOR 03/09/18 1101: CARDIO Progress Notes Date and Time Date of Service 03/09/2018 Time of Evaluation 1100 Subjective Subjective: No Chest Pain, No shortness of breath, No Palpitations, Other ( having right knees surgical pain, feels tired. ) Vitals Vitals Vital Signs Date Time Temp Pulse Resp B/P (MAP) Pulse Ox O2 Delivery O2 Flow Rate FiO2 03/09/18 10:11 76 83/48 03/09/18 08:52 94 03/09/18 08:15 Room Air 03/09/18 07:00 98.1 18 98.1 03/08/18 20:51 2.0 Weight Weight [ ] Input and Output Intake and Output Intake and Output 03/09/18 07:00 Intake Total 300 ml Output Total 2 ml Balance 298 ml Intake Oral 300 ml Output Urine Total 1 ml Stool Total 1 ml # Voids 3 # Bowel Movements 1 Laboratory Labs Laboratory Tests Test 03/09/18 09:47 Hemoglobin 8.5 g/dL (12.0-15.5) Hematocrit 24.3 % (36.0-47.0) Mean Corpuscular Hemoglobin Concent 35 g/dL (31-37) Physical Exam HEENT: Neck Supple W Full Motion Chest: Symmetric LUNGS: Clear to Auscultation Heart: S1S2, RRR (SR) Abdomen: Soft N/T Extremities: No Calf Tenderness, Other (right knee insicion covered with dressing dry and intact) Neurology: alert, oriented, follow commands Assessment Assessment 1. AFIB RVR: New onset, converted to SR yesterday. Paroxysmal flutter noted this AM with anemia contributing. Presently SR. 2. S/P RTKA: doing well, POD#3 3. HTN: Currently hypotensive. EF/WM nml with no significant valvular insufficiency. 4. HLP 5. Hx of bipolar disorder 6. Hx of breast CA: with past mastectomy and chemotherapy. 7. Post op anemia: Hgb now at 8.5 from preop 12.9. This is contributing to her hypotension addition to opioid and BB use. 8. Subclinical hypothyroidism Recommendations 1. IV fluid bolus. I would anticipate her Hgb would be in the 7s tomorrow. Would benefit from 1U of PRBC. Restart routine metoprolol once BP is more adequate. 2. Continue with ASA dose as part of her VTE prophylaxis and changing this to daily once the post op BID dosing is completed. . 3. Will arrange for outpt event monitor and note AFIB burden and any need for anticoagulation FAINA STONE MD 03/09/18 1603: CARDIO Progress Notes Plan Plan Patient seen and examined. Agree with above nurse practitioner note. Given her anemia she would not be a good candidate for any anticoagulation at this time. Continue supportive care with rate control. Will plan for outpt event monitor as noted above. Continue low dose b-jamir. WILMA ARIAS APRN Mar 09, 2018 11:01 FAINA STONE MD Mar 09, 2018 16:03
--- NOTE | 2018-03-09 13:13 | PDOC ---
PROGRESS NOTES Subjective Subjective Cardiology input appreciated. Now in NSR, had afib with RVR yesterday. Transfusion planned today should help cardiac status. No current SOB or CP, and knee feels good. Objective Vital Signs Vital Signs Date Time Temp Pulse Resp B/P (MAP) Pulse Ox O2 Delivery O2 Flow Rate FiO2 03/09/18 12:30 108/48 (68) 03/09/18 11:33 16 Room Air 03/09/18 11:00 98.3 73 94 98.3 03/08/18 20:51 2.0 Physical Exam Dressing dry and intact. Calf soft NT. Good AROM foot including DF/PF. Labs Laboratory Tests Test 03/08/18 05:05 03/09/18 09:47 Hemoglobin 9.9 g/dL (12.0-15.5) 8.5 g/dL (12.0-15.5) Hematocrit 28.6 % (36.0-47.0) 24.3 % (36.0-47.0) Mean Corpuscular Hemoglobin Concent 35 g/dL (31-37) 35 g/dL (31-37) Laboratory Tests Test 03/09/18 09:47 Hemoglobin 8.5 g/dL (12.0-15.5) Hematocrit 24.3 % (36.0-47.0) Mean Corpuscular Hemoglobin Concent 35 g/dL (31-37) Imaging postop x-ray images and report reviewed by me showing TKA in satisfactory alignment. PATIENT: TIKI BARFIELD ACCOUNT: [id number] : 1950 LOCATION: [facility] AGE: 67 SEX: F EXAM STATUS: ADM IN ORD. PHYSICIAN: QUINTEN WEBER REASON: POST OP PROCEDURE: KNEE RIGHT 2V EXAM: AP and crosstable lateral views of the right knee DATE: 03/06/2018 10:16 AM INDICATION: POST OP RIGHT KNEE REPLACEMENT COMPARISON: 05/10/2016 FINDINGS: Postoperative changes of right total knee arthroplasty are now seen, in good alignment without definite hardware application. Expected postoperative soft tissue changes are seen including drain and skin oniel. No evidence of acute fracture or dislocation. IMPRESSION: 1. Right total knee arthroplasty, in good alignment without definite hardware complication or fracture. Electronically signed by: Wellington Paniagua MD (03/06/2018 10:40 AM) [facility] Assessment Assessment POD#3 after TKA. Afib with RVR, now in SR. Acute blood loss anemia. Transfusion 1 u PRBC planned today. Ok for discharge 2 hours after transfusion. Plan Plan of Care Transfuse. Cardiology outpatient follow up including outpatient monitoring. Continue ASA 325 mg po BID for DVT proph and now for afib clot proph. WBAT PT Home later today. CHRISSY IGLESIAS MD Mar 09, 2018 13:12
[2018-03-09] MEDS ORDERED: METO25TA4 PO (13:21)
[2018-03-09] MEDS: PREGABALIN 75 MG CAPSULE PO PRN (20:50)
[2018-03-09 21:25] LABS: CALCIUM 8.4 mg/dL (8.5-10.1); CREATININE 0.8 mg/dL (0.6-1.0); POTASSIUM 4.4 mmol/L (3.5-5.1)
[2018-03-09 21:31] LABS: ALBUMIN/GLOBULIN RATIO 0.9 (1.0-1.7); MAGNESIUM 2.1 mg/dL (1.8-2.4); TOTAL BILIRUBIN 0.5 mg/dL (0.2-1.0); TOTAL PROTEIN 6.2 g/dL (6.4-8.2)
[2018-03-09] MEDS ORDERED: IV NORMAL SALINE 500ML BAG 250 ML IV ONE (23:45)
[2018-03-10 00:35] VITALS: BP 94/55
[2018-03-10 01:20] VITALS: BP 94/52
[2018-03-10 03:00] VITALS: BP 87/45
[2018-03-10 05:16] LABS: BASO # 0.1 x10^3/uL (0.0-0.2); BASO % 1 % (0-3); EOS # 0.3 x10^3/uL (0.0-0.7); EOS % 4 % (0-3); HEMOGLOBIN 10.5 g/dL (12.0-15.5); LYMPH # 1.4 x10^3/uL (1.0-4.8); LYMPH % 17 % (24-48); MEAN CORPUSCULAR HEMOGLOBIN 32 pg (25-35); MEAN CORPUSCULAR HGB CONC 34 g/dL (31-37); MEAN CORPUSCULAR VOLUME 94 fL (79-100); MONO # 0.6 x10^3/uL (0.0-1.1); MONO % 8 % (0-9); NEUT # 5.9 x10^3uL (1.8-7.7); NEUT % 71 % (31-73); PLATELET COUNT 174 x10^3/uL (140-400); RED BLOOD COUNT 3.31 x10^6/uL (3.50-5.40); RED CELL DISTRIBUTION WIDTH 15.9 % (11.5-14.5); WHITE BLOOD COUNT 8.4 x10^3/uL (4.0-11.0)
[2018-03-10] MEDS: METOPROLOL TART IMMED RELEASE 25 MG TABLET. PO SCH (08:41)
[2018-03-10] MEDS: FERROUS SULFATE 325 MG TABLET. PO SCH ×2 (10:28→14:46)
[2018-03-10] MEDS: MULTIVITAMIN with MINERAL TABLET. PO SCH (10:28)
[2018-03-10] MEDS: ASPIRIN ENTERIC COATED 325 MG TABLET.DR. PO SCH (10:28)
[2018-03-10] MEDS: SENNOSIDES/DOCUSATE 8.6/50MG TABLET. PO SCH (10:29)
[2018-03-10] MEDS: CELECOXIB 100 MG CAPSULE. PO SCH (10:29)
[2018-03-10 11:00] VITALS: BP 125/72
--- NOTE | 2018-03-11 16:07 | PATHOLOGY ---
[facility] Accession Number: [id number] . 01 Material submitted: . RIGHT KNEE BONE AND SOFT TISSUE . 01 Clinical history: . Osteoarthritis . 02 Diagnosis: "Right knee bone and soft tissue", removal: - Degenerative osteoarthritis. . (SK:mml; 03/08/18) [facility]/03/08/2018 . 02 Electronically signed: . Seferino Mansfield MD, Pathologist NPI- [id number] . 01 Gross description: . The specimen is received in formalin, labeled "Souza, Lily, and right knee bone and soft tissue", are multiple segments of marshall-yellow bones with recognizable tibia plateau, patella, and meniscus and attached chao-white fibrous soft tissue measuring 12.5 x 10 x 2.0 in aggregate. Several fragments have eburnated areas with the remaining articular cartilage marshall-yellow and smooth. Peripheral osteophytes are present. Financial Planning Adviser sections are submitted in A1 after decalcification. . ([facility]; 03/07/2018) SHS/SHS . 02 Pathologist provided ICD-10: M17.11 . 02 CPT . 023086, [id number] Performed at: 01 [facility] [address] [facility] [address], [place] [id number] MD Jaron Lrod MD Phone: [phone] Performed at: 02 [facility] [address] [id number] MD Redd Wheat MD Phone: [phone]
== END 2018-03-10 15:07 | disposition home or self-care (01) | DRG 470 ==
LOC: OPSVCIP 05:39 → 2 NORTH 11:52 → UNDODISIN 03-08 13:00 → 4 NORTH 03-08 13:00
PROVIDERS: ADMIT Orthopaedic Surgery; ATTEND Orthopaedic Surgery
PROC: 0SRC069 Replacement of Right Knee Joint with Oxidized Zirconium on Polyethylene Synthetic Substitute, Cemented, Open Approach (ICD-10-PCS; principal; 2018-03-06 07:10)
PROC: 30233N1 Transfusion of Nonautologous Red Blood Cells into Peripheral Vein, Percutaneous Approach (ICD-10-PCS; 2018-03-09)
DX: M17.11 Unilateral primary osteoarthritis, right knee (principal); D62 Acute posthemorrhagic anemia; I48.91 Unspecified atrial fibrillation; I10 Essential (primary) hypertension; E78.5 Hyperlipidemia, unspecified; K21.9 Gastro-esophageal reflux disease without esophagitis; F41.9 Anxiety disorder, unspecified; Z90.710 Acquired absence of both cervix and uterus; Z83.3 Family history of diabetes mellitus; Z82.62 Family history of osteoporosis; F31.9 Bipolar disorder, unspecified; Z85.3 Personal history of malignant neoplasm of breast; E03.9 Hypothyroidism, unspecified; Z90.12 Acquired absence of left breast and nipple; G62.9 Polyneuropathy, unspecified; I95.9 Hypotension, unspecified
CPT/HCPCS: 36415; 73560; 80048; 80053; 83735; 84443; 85014; 85018; 85025; 86850; 86900; 86901; 86920; 88305; 88311; 93005; 93306; A7015; C1713; J0171; J0690; J1100; J1885; J2001; J2250; J2270; J2370; J2405; J2704; J2795; J3010; J3260; J3370; J3490; J7030; J7040; J7120; P9016; 97110; 97116; 97150; 97530; 97535; A4461; C1769

== ENCOUNTER 2018-03-12 18:27 | Emergency (ER) | payer MEDICARE, OTHER ==
[~2018-03-12] VITALS: Ht 172.7 cm; Wt 76.2 kg
[~2018-03-12 18:27] MED LIST changes: +METO25TA4 PO; -TOBRAMYCIN POWDER 1.2 GM VIAL. ONE; -VANCOMYCIN 1 GM VIAL. ONE
--- NOTE | 2018-03-12 19:25 | PHYS DOC ---
Past Medical History Past Medical History: Anxiety, Bipolar, Depression, High Cholesterol Past Surgical History: Knee Replacement, Other Additional Past Surgical Histo: LEFT MASTECTOMY Alcohol Use: None Drug Use: None Adult General Chief Complaint Chief Complaint: POST-OP PROBLEM HPI HPI Patient is a 67 year old female who presents with complaining of swelling and erythema to the right leg status post total right knee replacement for a rule out DVT. Patient was at physical therapy earlier today and it was noted to be slightly red and swollen. Patient denies any chest pain or shortness of breath this time and has no acute complaints. Consult for new onset A fi with rvr by Dr Mchugh on 03/06/2018 This is a pleasant 67 yo female admitted for planned RTKA. The surgery was successful and currently she is drowsy but arousable and Ox3 and surgical pain is controlled. Postoperatively she was noted with tachycardia and afib was confirmed. His HR was in the 130s and 140s and was given cardizem IV bolus. I evaluated her and provided IV lopressor since no significant response to cardizem. Presently denies any SOA, CP nor palpiations. Denies any prior hx of AFIB, CVA, clotting disorders or bleeding disorders. She does not take any ASA but takes losartan, lamictal, wellbutrin and lyrica. Denies any ETOH, tobacco or recreational drug use and no hx of excessive caffeine use nor stimulants ASSESSMENT/PLAN ASSESSMENT/PLAN 1. AFIB RVR: New onset. likely due to surgical stress response. 2. S/P RTKA: today and tolerated procedure well. 3. HTN: controlled 4. HLP 5. Hx of bipolar disorder 6. Hx of breast CA: with past mastectomy and chemotherapy. Recommendations 1. IV lopressor x1. Start on metoprolol 25 mg po q6hrs. Hold losartan to accomodate BB 2. Presently on 325 mg po bid for VTE prophylaxis in relation to RTKA. [id number]- VASc is 3. If AFIB is sustained overnight then would recommend switching to coumadin or eliquis moving forward for stroke prevention as well as for VTE prophylaxis. 3. Will also plan for outpt event monitor and note AFIB burden and further need of continued anticoagulation. If pt does not convert to SR then adequate anticoagulation is is warranted if outpt cardioversion is to be considered. 4. TSH, CBC and Mg. 5. TTE today <Conclusion>Echo per Dr Ramachandran on 03/06/2018 The left ventricular systolic function is normal. The Ejection Fraction is 55-60%. There is normal LV segmental wall motion. Transmitral Doppler flow pattern is Grade I-abnormal relaxation pattern. Trace to mild tricuspid regurgitation. The PA pressure was estimated at 24 mmHg. There is no evidence of significant pericardial effusion. Signed by : Johnnie Ramachandran, Electronically Approved : 03/06/2018 16:43:31 Review of Systems Review of Systems Constitutional: Denies fever or chills [] Eyes: Denies change in visual acuity, redness, or eye pain [] HENT: Denies nasal congestion or sore throat [] Respiratory: Denies cough or shortness of breath [] Cardiovascular: No additional information not addressed in HPI [] GI: Denies abdominal pain, nausea, vomiting, bloody stools or diarrhea [] : Denies dysuria or hematuria [] Musculoskeletal: Denies back pain or joint pain [] Integument: Denies rash or skin lesions [] Neurologic: Denies headache, focal weakness or sensory changes [] Endocrine: Denies polyuria or polydipsia [] All other systems were reviewed and found to be within normal limits, except as documented in this note. Current Medications Current Medications Current Medications Medications (Trade) Dose Ordered Sig/Dali Start Time Stop Time Status Last Admin Dose Admin Metoprolol Tartrate (Lopressor Vial) 5 mg 1X ONCE 03/12/18 19:30 03/12/18 19:31 DC 03/12/18 19:48 5 MG Sodium Chloride 1,000 ml @ 125 mls/hr 1X ONCE 03/12/18 19:30 03/13/18 03:29 03/12/18 19:47 125 MLS/HR Allergies Allergies Allergies Coded Allergies Type Severity Reaction Last Updated Verified No Known Drug Allergies 03/06/18 No Physical Exam Physical Exam Constitutional: Well developed, well nourished, no acute distress, non-toxic appearance. [] HENT: Normocephalic, atraumatic, bilateral external ears normal, oropharynx moist, no oral exudates, nose normal. [] Eyes: PERRLA, EOMI, conjunctiva normal, no discharge. [] Neck: Normal range of motion, no tenderness, supple, no stridor. [] Cardiovascular:Heart rate regular rhythm, no murmur [] Lungs & Thorax: Bilateral breath sounds clear to auscultation [] Abdomen: Bowel sounds normal, soft, no tenderness, no masses, no pulsatile masses. [] Skin: Warm, dry, no erythema, no rash. [] Back: No tenderness, no CVA tenderness. [] Extremities: No tenderness, no cyanosis, no clubbing, ROM intact, no edema. [] Neurologic: Alert and oriented X 3, normal motor function, normal sensory function, no focal deficits noted. [] Psychologic: Affect normal, judgement normal, mood normal. [] Current Patient Data Vital Signs Vital Signs Date Time Temp Pulse Resp B/P (MAP) Pulse Ox O2 Delivery O2 Flow Rate FiO2 03/12/18 21:30 64 145/84 (104) 98 Room Air 03/12/18 18:45 98.5 18 98.5 Lab Values Laboratory Tests Test 03/12/18 18:55 White Blood Count 9.2 x10^3/uL (4.0-11.0) Red Blood Count 3.55 x10^6/uL (3.50-5.40) Hemoglobin 11.0 g/dL (12.0-15.5) L Hematocrit 32.1 % (36.0-47.0) L Mean Corpuscular Volume 90 fL (79-100) Mean Corpuscular Hemoglobin 31 pg (25-35) Mean Corpuscular Hemoglobin Concent 34 g/dL (31-37) Red Cell Distribution Width 14.7 % (11.5-14.5) H Platelet Count 273 x10^3/uL (140-400) Neutrophils (%) (Auto) 75 % (31-73) H Lymphocytes (%) (Auto) 13 % (24-48) L Monocytes (%) (Auto) 9 % (0-9) Eosinophils (%) (Auto) 3 % (0-3) Basophils (%) (Auto) 1 % (0-3) Neutrophils # (Auto) 6.8 x10^3uL (1.8-7.7) Lymphocytes # (Auto) 1.2 x10^3/uL (1.0-4.8) Monocytes # (Auto) 0.8 x10^3/uL (0.0-1.1) Eosinophils # (Auto) 0.2 x10^3/uL (0.0-0.7) Basophils # (Auto) 0.1 x10^3/uL (0.0-0.2) Erythrocyte Sedimentation Rate 56 (0-25) H Prothrombin Time 13.6 SEC (11.7-14.0) Prothrombin Time INR 1.1 (0.8-1.1) Sodium Level 137 mmol/L (136-145) Potassium Level 4.4 mmol/L (3.5-5.1) Chloride Level 104 mmol/L (98-107) Carbon Dioxide Level 23 mmol/L (21-32) Anion Gap 10 (6-14) Blood Urea Nitrogen 11 mg/dL (7-20) Creatinine 0.9 mg/dL (0.6-1.0) Estimated GFR (Cockcroft-Gault) 62.8 BUN/Creatinine Ratio 12 (6-20) Glucose Level 111 mg/dL (70-99) H Calcium Level 9.4 mg/dL (8.5-10.1) Total Bilirubin 1.1 mg/dL (0.2-1.0) H Aspartate Amino Transferase (AST) 36 U/L (15-37) Alanine Aminotransferase (ALT) 39 U/L (14-59) Alkaline Phosphatase 102 U/L (46-116) C-Reactive Protein, Quantitative 70.7 mg/L (0-3.3) H Total Protein 7.1 g/dL (6.4-8.2) Albumin 3.6 g/dL (3.4-5.0) Albumin/Globulin Ratio 1.0 (1.0-1.7) Laboratory Tests 03/12/18 18:55 Laboratory Tests 03/12/18 18:55 EKG EKG A. fib at a rate of 115[] The EKG [post IV Lopressor 1] revealed a normal sinus rhythm at a rate of 61 on her EKG. Radiology/Procedures Radiology/Procedures [facility] [address] [facility] [place] [address] IMAGING REPORT Signed PATIENT: TIKI BARFIELD ACCOUNT: [id number] : 1950 LOCATION: ER AGE: 67 SEX: F EXAM STATUS: REG ER ORD. PHYSICIAN: YAZMIN JOHNSON MD REASON: rule out dvt, post op PROCEDURE: VENOUS LOWER EXTREMITY RIGHT Ultrasound venous Doppler INDICATION:rt lower leg pain post op total knee replacement TECHNIQUE: Grayscale, color Doppler and spectral waveform ultrasound images of the right lower extremities deep veins obtained. COMPARISON: None FINDINGS: The interrogated deep veins are compressible and demonstrate evidence of blood flow with normal respiratory variation and response to augmentation. IMPRESSION: No sonographic evidence of acute DVT of the right lower extremity deep veins. Electronically signed by: Samuel Collier DO (03/12/2018 9:15 PM) [facility] DICTATED and SIGNED BY: SAMUEL COLLIER DO DATE: 03/12/182114 [] Course & Med Decision Making Course & Med Decision Making Pertinent Labs and Imaging studies reviewed. (See chart for details) Patient was given a single dose of IV Lopressor and converted out of A. fib back to normal sinus at a rate of 61. Discussed with Dr. Elliott, patient gave permission to have pictures of her leg sent to him and after review he stated that this was secondary to surgery and healing process and was noninfection and requested no antibiotics be given with outpatient follow-up. Also verified that she is to take aspirin 325 mg twice a day. Past with Dr. Prince - recommended given the patient's response to a single dose of IV Lopressor that she be sent out on metoprolol 25 mg. He took her name and stated the office call her to arrange outpatient follow-up. [] Dragon Disclaimer Dragon Disclaimer This electronic medical record was generated, in whole or in part, using a voice recognition dictation system. Departure Departure Impression: Primary Impression: Visit for wound check Additional Impressions: Atrial fib/flutter, transient History of total knee replacement Disposition: HOME, SELF-CARE Condition: IMPROVED Referrals: KAMRYN HUTCHINSON MD (PCP) Patient Instructions: Atrial Fibrillation, [id number], Wound Care, Easy-to- Read, Wound Check Scripts Metoprolol Succinate (METOPROLOL SUCCINATE ( XL )) 25 Mg Tab.er.24h 1 TAB PO DAILY, #30 TAB 5 Refills Prov: YAZMIN JOHNSON MD 03/12/18 Problem Qualifiers YAZMIN JOHNSON MD Mar 12, 2018 19:25
[2018-03-12 19:30] LABS: BASO # 0.1 x10^3/uL (0.0-0.2); BASO % 1 % (0-3); EOS # 0.2 x10^3/uL (0.0-0.7); EOS % 3 % (0-3); HEMATOCRIT 32.1 % (36.0-47.0); LYMPH # 1.2 x10^3/uL (1.0-4.8); LYMPH % 13 % (24-48); MEAN CORPUSCULAR HEMOGLOBIN 31 pg (25-35); MEAN CORPUSCULAR HGB CONC 34 g/dL (31-37); MEAN CORPUSCULAR VOLUME 90 fL (79-100); MONO # 0.8 x10^3/uL (0.0-1.1); MONO % 9 % (0-9); NEUT # 6.8 x10^3uL (1.8-7.7); NEUT % 75 % (31-73); PLATELET COUNT 273 x10^3/uL (140-400); RED BLOOD COUNT 3.55 x10^6/uL (3.50-5.40); RED CELL DISTRIBUTION WIDTH 14.7 % (11.5-14.5); WHITE BLOOD COUNT 9.2 x10^3/uL (4.0-11.0)
[2018-03-12 19:34] LABS: CALCIUM 9.4 mg/dL (8.5-10.1); CREATININE 0.9 mg/dL (0.6-1.0); GFR 62.8; POTASSIUM 4.4 mmol/L (3.5-5.1); PROTHROMBIN TIME PATIENT 13.6 SEC (11.7-14.0)
[2018-03-12 19:41] LABS: ALBUMIN 3.6 g/dL (3.4-5.0); C-REACTIVE PROTEIN 70.7 mg/L (0-3.3); TOTAL BILIRUBIN 1.1 mg/dL (0.2-1.0); TOTAL PROTEIN 7.1 g/dL (6.4-8.2)
[2018-03-12] MEDS: IV NORMAL SALINE 1000ML BAG 1,000 ML IV ONE (19:47)
[2018-03-12] MEDS: IV NORMAL SALINE 500ML BAG 500 ML IV ONE (19:47)
[2018-03-12] MEDS: METOPROLOL TARTRATE 5 MG/5 ML VIAL. IVP ONE (19:48)
--- NOTE | 2018-03-12 19:54 | EKG ---
[facility] [address] [place] [address] Test Date: 2018-03-12 Test Time: 19:03:45 Pat Name: TIKI BARFIELD Department: Room: Gender: F Ged Preparation Teacher: : 1950 Requested By: YAZMIN JOHNSON Order Number: [id number] Reading MD: Nikita Lee MD Measurements Intervals [place] Rate: 115 P: 90 IN: 148 QRS: -22 QRSD: 92 T: -5 QT: 322 QTc: 447 Interpretive Statements ATRIAL FLUTTER NON-SPECIFIC ST/T CHANGES Electronically Signed On 03-13-2018 12:07:52 CDT by Nikita Lee MD
--- NOTE | 2018-03-12 21:19 | RAD ---
Ultrasound venous Doppler INDICATION:rt lower leg pain post op total knee replacement TECHNIQUE: Grayscale, color Doppler and spectral waveform ultrasound images of the right lower extremities deep veins obtained. COMPARISON: None FINDINGS: The interrogated deep veins are compressible and demonstrate evidence of blood flow with normal respiratory variation and response to augmentation. IMPRESSION: No sonographic evidence of acute DVT of the right lower extremity deep veins. Electronically signed by: Samuel Collier DO (03/12/2018 9:15 PM) [facility]
[2018-03-12] MEDS ORDERED: METO-239 PO (22:11)
[2018-03-12 22:30] VITALS: BP 137/86
--- NOTE | 2018-03-12 23:42 | EKG ---
[facility] [address] [place] [address] Test Date: 2018-03-12 Test Time: 21:21:35 Pat Name: TIKI BARFIELD Department: Room: Gender: F Tuyere Fitter: : 1950 Requested By: YAZMIN JOHNSON Order Number: [id number] Reading MD: Nikita Lee MD Measurements Intervals [place] Rate: 60 P: 41 MN: 184 QRS: -2 QRSD: 96 T: 16 QT: 422 QTc: 426 Interpretive Statements SINUS RHYTHM Electronically Signed On 03-13-2018 12:08:49 CDT by Nikita Lee MD
== END 2018-03-12 22:30 | disposition home or self-care (01) ==
LOC: ER 18:27
DX: L53.9 Erythematous condition, unspecified (principal); I48.91 Unspecified atrial fibrillation; I48.92 Unspecified atrial flutter; F41.9 Anxiety disorder, unspecified; F31.9 Bipolar disorder, unspecified; E78.00 Pure hypercholesterolemia, unspecified; Z90.12 Acquired absence of left breast and nipple; Z96.651 Presence of right artificial knee joint
CPT/HCPCS: 36415; 80053; 85025; 85610; 85651; 86140; 93005; 93971; 96374; 99285; J3490; J7030; J7040

== ENCOUNTER 2018-03-16 20:50 | Emergency (ER) | payer MEDICARE, OTHER ==
[~2018-03-16] VITALS: Ht 172.7 cm; Wt 68.9 kg
[~2018-03-16 20:50] MED LIST changes: +METO-239 PO
[2018-03-16] MEDS ORDERED: IV NORMAL SALINE 1000ML BAG 1,000 ML IV SCH (21:39)
[2018-03-16 21:51] LABS: BASO # 0.1 x10^3/uL (0.0-0.2); BASO % 1 % (0-3); EOS # 0.3 x10^3/uL (0.0-0.7); EOS % 3 % (0-3); HEMOGLOBIN 10.3 g/dL (12.0-15.5); LYMPH # 1.6 x10^3/uL (1.0-4.8); LYMPH % 20 % (24-48); MEAN CORPUSCULAR HEMOGLOBIN 31 pg (25-35); MEAN CORPUSCULAR HGB CONC 34 g/dL (31-37); MEAN CORPUSCULAR VOLUME 92 fL (79-100); MONO # 0.7 x10^3/uL (0.0-1.1); MONO % 9 % (0-9); NEUT # 5.5 x10^3uL (1.8-7.7); NEUT % 67 % (31-73); PLATELET COUNT 349 x10^3/uL (140-400); RED BLOOD COUNT 3.28 x10^6/uL (3.50-5.40); RED CELL DISTRIBUTION WIDTH 14.6 % (11.5-14.5); WHITE BLOOD COUNT 8.1 x10^3/uL (4.0-11.0)
[2018-03-16 21:58] LABS: CALCIUM 9.2 mg/dL (8.5-10.1); CREATININE 0.9 mg/dL (0.6-1.0); GFR 62.8; POTASSIUM 4.6 mmol/L (3.5-5.1); PROTHROMBIN TIME PATIENT 14.3 SEC (11.7-14.0)
[2018-03-16 22:04] LABS: ALBUMIN 3.5 g/dL (3.4-5.0); ALBUMIN/GLOBULIN RATIO 1.1 (1.0-1.7); TOTAL BILIRUBIN 0.5 mg/dL (0.2-1.0); TOTAL PROTEIN 6.8 g/dL (6.4-8.2)
--- NOTE | 2018-03-16 23:16 | PHYS DOC ---
Past Medical History Past Medical History: Bipolar, Depression, Hypertension Past Surgical History: Hysterectomy Additional Past Surgical Histo: LT MASTECTOMY, BILAT KNEE REPLACEMENTS Alcohol Use: None Drug Use: None Adult General Chief Complaint Chief Complaint: WEAKNESS/GENERALIZED HPI HPI Patient is a 67-year-old female who presents with complaint of general malaise with report of low-grade fever at home and generalized weakness. She also complains of body aches. She states that she feels like she has the flu. She denies any chest pain or shortness of breath. She did have recent right knee surgery and had been here on Monday and was told that everything looked okay. Patient rates her body aches and a 5 out of 10. She denies any nausea or vomiting but does state that she has had a decreased appetite. Review of Systems Review of Systems Constitutional: Complains of fever[] Respiratory: Denies cough or shortness of breath [] Cardiovascular: Denies chest pain[] GI: Denies abdominal pain, nausea, vomiting [] : Denies dysuria or hematuria [] Musculoskeletal: Complains of body aches and right knee pain[] All other systems were reviewed and found to be within normal limits, except as documented in this note. Current Medications Current Medications Current Medications Medications (Trade) Dose Ordered Sig/Dali Start Time Stop Time Status Last Admin Dose Admin Sodium Chloride 1,000 ml @ 1,000 mls/hr Q1H 03/16/18 21:39 03/16/18 22:38 DC 03/16/18 21:39 1,000 MLS/HR Allergies Allergies Allergies Coded Allergies Type Severity Reaction Last Updated Verified No Known Drug Allergies 03/06/18 No Physical Exam Physical Exam Constitutional: Well developed, well nourished, no acute distress, non-toxic appearance. [] HENT: Normocephalic, atraumatic, bilateral external ears normal, oropharynx moist, no oral exudates, nose normal. [] Eyes: PERRLA, EOMI, conjunctiva normal, no discharge. [] Neck: Normal range of motion, no tenderness, supple, no stridor. [] Cardiovascular:Heart rate regular rhythm [] Lungs & Thorax: Bilateral breath sounds clear to auscultation [] Abdomen: Bowel sounds normal, soft, no tenderness, no masses, no pulsatile masses. [] Skin: Warm, dry, no erythema, no rash. [] Extremities: Right lower extremity does demonstrate swelling around the knee. No obvious secondary signs of infection are noted. [] Neurologic: Alert and oriented X 3, normal motor function, normal sensory function, no focal deficits noted. [] Current Patient Data Vital Signs Vital Signs Date Time Temp Pulse Resp B/P (MAP) Pulse Ox O2 Delivery O2 Flow Rate FiO2 03/16/18 21:09 98.4 65 18 126/72 (90) 100 Room Air 98.4 Lab Values Laboratory Tests Test 03/16/18 21:30 03/16/18 23:05 White Blood Count 8.1 x10^3/uL (4.0-11.0) Red Blood Count 3.28 x10^6/uL (3.50-5.40) L Hemoglobin 10.3 g/dL (12.0-15.5) L Hematocrit 30.0 % (36.0-47.0) L Mean Corpuscular Volume 92 fL (79-100) Mean Corpuscular Hemoglobin 31 pg (25-35) Mean Corpuscular Hemoglobin Concent 34 g/dL (31-37) Red Cell Distribution Width 14.6 % (11.5-14.5) H Platelet Count 349 x10^3/uL (140-400) Neutrophils (%) (Auto) 67 % (31-73) Lymphocytes (%) (Auto) 20 % (24-48) L Monocytes (%) (Auto) 9 % (0-9) Eosinophils (%) (Auto) 3 % (0-3) Basophils (%) (Auto) 1 % (0-3) Neutrophils # (Auto) 5.5 x10^3uL (1.8-7.7) Lymphocytes # (Auto) 1.6 x10^3/uL (1.0-4.8) Monocytes # (Auto) 0.7 x10^3/uL (0.0-1.1) Eosinophils # (Auto) 0.3 x10^3/uL (0.0-0.7) Basophils # (Auto) 0.1 x10^3/uL (0.0-0.2) Prothrombin Time 14.3 SEC (11.7-14.0) H Prothrombin Time INR 1.2 (0.8-1.1) H Sodium Level 137 mmol/L (136-145) Potassium Level 4.6 mmol/L (3.5-5.1) Chloride Level 104 mmol/L (98-107) Carbon Dioxide Level 25 mmol/L (21-32) Anion Gap 8 (6-14) Blood Urea Nitrogen 16 mg/dL (7-20) Creatinine 0.9 mg/dL (0.6-1.0) Estimated GFR (Cockcroft-Gault) 62.8 BUN/Creatinine Ratio 18 (6-20) Glucose Level 104 mg/dL (70-99) H Lactic Acid Level 1.1 mmol/L (0.4-2.0) Calcium Level 9.2 mg/dL (8.5-10.1) Total Bilirubin 0.5 mg/dL (0.2-1.0) Aspartate Amino Transferase (AST) 25 U/L (15-37) Alanine Aminotransferase (ALT) 33 U/L (14-59) Alkaline Phosphatase 99 U/L (46-116) Total Protein 6.8 g/dL (6.4-8.2) Albumin 3.5 g/dL (3.4-5.0) Albumin/Globulin Ratio 1.1 (1.0-1.7) Urine Collection Type Unknown Urine Color Yellow Urine Clarity Clear Urine pH 6.5 Urine Specific [place] <=1.005 Urine Protein Negative mg/dL (NEG-TRACE) Urine Glucose (UA) Negative mg/dL (NEG) Urine Ketones (Stick) Negative mg/dL (NEG) Urine Blood Negative (NEG) Urine Nitrite Negative (NEG) Urine Bilirubin Negative (NEG) Urine Urobilinogen Dipstick 0.2 mg/dL (0.2 mg/dL) Urine Leukocyte Esterase Negative (NEG) Urine RBC 0 /HPF (0-2) Urine WBC 0 /HPF (0-4) Urine Squamous Epithelial Cells Few /LPF Urine Bacteria 0 /HPF (0-FEW) Laboratory Tests 03/16/18 21:30 Laboratory Tests 03/16/18 21:30 EKG EKG [] Radiology/Procedures Radiology/Procedures [] Impressions: IMPRESSION: 1. No thrombus identified in deep venous system of right lower extremity. Course & Med Decision Making Course & Med Decision Making Pertinent Labs and Imaging studies reviewed. (See chart for details) [] Dragon Disclaimer Dragon Disclaimer This electronic medical record was generated, in whole or in part, using a voice recognition dictation system. Departure Departure Impression: Primary Impression: Postoperative pain of right knee Additional Impression: Fever Disposition: HOME, SELF-CARE Condition: STABLE Referrals: KAMRYN HUTCHINSON MD (PCP) Patient Instructions: Fever, Pain Relief Preoperatively and Postoperatively Additional Instructions: Take prescribed medication as directed and keep appointment with your orthopedist for Monday. Scripts Sulfamethoxazole/Trimethoprim (BACTRIM DS TABLET) 1 Each Tablet 1 TAB PO BID, #20 TAB Prov: KOFFI SMITH Jr. DO 03/17/18 Hydrocodone/Apap 5-325 (NORCO 5-325 TABLET) 1 Each Tablet 1 EACH PO PRN Q6HRS PRN for PAIN, #15 as needed for pain Prov: KOFFI SMITH Jr. DO 03/17/18 Problem Qualifiers Additional Impression: Fever Fever type: unspecified Qualified Codes: R50.9 - Fever, unspecified KOFFI SMITH Jr. DO Mar 16, 2018 23:16
[2018-03-16 23:27] LABS: BILIRUBIN,URINE NEGATIVE (NEG); CLARITY,URINE CLEAR; COLOR,URINE YELLOW; NITRITE,URINE NEGATIVE (NEG); PH,URINE 6.5; PROTEIN,URINE NEGATIVE (NEG-TRACE); UROBILINOGEN,URINE 0.2 mg/dL (0.2 mg/dL)
[2018-03-16 23:37] LABS: BACTERIA,URINE 0 /HPF (0-FEW); RBC,URINE 0 /HPF (0-2); SQUAMOUS EPITHELIAL CELL,UR FEW /LPF; WBC,URINE 0 /HPF (0-4)
[2018-03-17] VITALS: BP 133/66
--- NOTE | 2018-03-17 00:07 | RAD ---
INDICATION: Status post knee surgery with leg pain COMPARISON: March 12, 2018 TECHNIQUE: Grayscale, color and doppler ultrasound images were obtained of the right lower extremity venous vasculature. RIGHT: No thrombus identified in the common femoral vein, femoral vein, popliteal vein or visualized calf veins. IMPRESSION: 1. No thrombus identified in deep venous system of right lower extremity. Electronically signed by: Sage Winston MD (03/17/2018 12:04 AM) [facility]
[2018-03-17] MEDS ORDERED: SULF1TAB24 PO (00:49)
[2018-03-17] MEDS ORDERED: HYDR-971 PO (00:49)
--- NOTE | 2018-03-17 09:26 | EKG ---
[facility] [address] [place] [address] Test Date: 2018-03-16 Test Time: 21:05:43 Pat Name: TIKI BARFIELD Department: Room: Gender: F Hand Rug [employer]er: : 1950 Requested By: KOFFI SMITH Order Number: [id number] Reading MD: Nikita Lee MD Measurements Intervals [place] Rate: 61 P: 34 TN: 186 QRS: -10 QRSD: 98 T: 21 QT: 400 QTc: 404 Interpretive Statements SINUS RHYTHM Electronically Signed On 03-20-2018 9:03:34 CDT by Nikita Lee MD
== END 2018-03-17 00:57 | disposition home or self-care (01) ==
LOC: ER 20:50
DX: G89.18 Other acute postprocedural pain (principal); M25.561 Pain in right knee; R50.9 Fever, unspecified; R53.81 Other malaise; M79.1 Myalgia; I10 Essential (primary) hypertension; F31.9 Bipolar disorder, unspecified; Z96.653 Presence of artificial knee joint, bilateral
CPT/HCPCS: 36415; 80053; 81001; 83605; 85025; 85610; 87040; 87205; 93005; 93971; 99285; J7030

== ENCOUNTER → 2018-04-12 | Outpatient (CLI) | payer MEDICARE, OTHER ==
[2018-03-17] VITALS: BP 133/66
[~2018-04-12] MED LIST changes: +HYDR-971 PO; -LOSA100T6 PO; +LOSA100T7 PO; -LOSA25TA4 PO; +LOSA25TA5 PO; +SULF1TAB24 PO
== END | disposition home or self-care (01) ==
LOC: LAB 13:43
PROVIDERS: ATTEND Orthopaedic Surgery
DX: M25.461 Effusion, right knee (principal); I10 Essential (primary) hypertension; E78.5 Hyperlipidemia, unspecified; E78.00 Pure hypercholesterolemia, unspecified; E03.9 Hypothyroidism, unspecified; I48.92 Unspecified atrial flutter; K21.9 Gastro-esophageal reflux disease without esophagitis; Z90.12 Acquired absence of left breast and nipple; Z96.653 Presence of artificial knee joint, bilateral; Z90.710 Acquired absence of both cervix and uterus; Z82.62 Family history of osteoporosis; Z83.3 Family history of diabetes mellitus
CPT/HCPCS: 36415; 85651; 86140

== ENCOUNTER → 2018-04-27 | Outpatient (CLI) | payer MEDICARE, OTHER ==
--- NOTE | 2018-04-27 14:52 | RAD ---
CT of the right knee without contrast, 05/07/2018: HISTORY: Pain after knee arthroplasty Noncontrast scans were obtained with multiplanar reconstructions produced. A right total knee prosthesis is in place with associated artifacts severely degrading image quality at the joint level. There are radiopacities which are probably electrode leads in the subcutaneous soft tissues along the medial aspect of the knee. These are incompletely visualized on the CT images. Clinical correlation is suggested. No fracture or dislocation is identified. A large knee joint effusion is present. A 5 x 2.5 x 2.8 cm oval-shaped fluid collection is present posteromedially, deep to the sartorius muscle, superior to the level the knee joint. This is probably a bursal collection of fluid. A hematoma is less likely. No other abnormality is detected. IMPRESSION: 1. Limited exam due to artifacts arising from the knee prosthesis. 2. No definite bony abnormality is detected. 3. Large knee joint effusion. 4. Bursal collection of fluid posteromedially in the distal thigh. PQRS Compliance Statement: One or more of the following individualized dose reduction techniques were utilized for this examination: 1. Automated exposure control 2. Adjustment of the mA and/or kV according to patient size 3. Use of iterative reconstruction technique Electronically signed by: Khadar Colin MD (04/27/2018 2:48 PM) [facility]
== END | disposition home or self-care (01) ==
LOC: CT 12:47
PROVIDERS: ATTEND Nurse Practitioner Adult Health
DX: M25.461 Effusion, right knee (principal)
CPT/HCPCS: 73700

== ENCOUNTER 2018-05-08 11:21 | Day surgery (SDC) | payer MEDICARE, OTHER ==
--- NOTE | 2018-05-07 21:22 | PDOC1 ---
History and Physical Date of Admission Date of Admission DATE: 05/08/18 Identification/Chief Complaint Chief Complaint right knee pain and stiffness s/p right TKA Source Source: Chart review History of Present Illness History of Present Illness The patient is a 67 y/o female who is almost 2 months status post right total knee arthroplasty on 03/06/18. She had cultures done to check for infection, which were negative. CT scan from [facility] on 04.27.2018 shows limited exam due to artifacts arising from the knee prosthesis. No definite bony abnormality is detected. Large joint effusion. Bursal collection of fluid posteromedially in distal thigh. She is still experiencing significant pain and stiffness of the right total knee. Past Medical History Cardiovascular: HTN, Hyperlipidemia Pulmonary: No pertinent hx CENTRAL NERVOUS SYSTEM: Periperal neuropathy, Other GI: GERD Heme/Onc: No pertinent hx, Cancer Hepatobiliary: No pertinent hx Psych: Anxiety, Bipolar, Depression Musculoskeletal: Osteoarthritis Rheumatologic: No pertinent hx Infectious disease: No pertinent hx Renal/: No pertinent hx Endocrine: No pertinent hx Past Surgical History Past Surgical History: Arthroscopy, Mastectomy, Total knee replacement (left - 05/10/16, right 02/2018), Tonsillectomy, Hysterectomy Family History Family History: Cancer, Diabetes, Hypertension, Osteo Arthiritis, Other Social History Smoke: No ALCOHOL: none Drugs: None Current Medications Current Medications Current Medications Cefazolin Sodium/ Dextrose 50 ml @ 100 mls/hr 1X PREOP PRN IV PRIOR TO PROCEDURE; Start 05/08/18 at 06:00; Stop 05/08/18 at 18:00 Ondansetron HCl (Zofran) 4 mg PRN Q6HRS PRN IV NAUSEA/VOMITING; Start at 07:00; Stop 05/09/18 at 06:59 Fentanyl Citrate (Fentanyl 2ml Vial) 25 mcg PRN Q5MIN PRN IV MILD PAIN; Start 05/08/18 at 07:00; Stop 05/09/18 at 06:59 Fentanyl Citrate (Fentanyl 2ml Vial) 50 mcg PRN Q5MIN PRN IV MODERATE TO SEVERE PAIN; Start 05/08/18 at 07:00; Stop 05/09/18 at 06:59 Morphine Sulfate (Morphine Sulfate) 1 mg PRN Q10MIN PRN IV SEVERE PAIN; Start 05/08/18 at 07:00; Stop 05/09/18 at 06:59 Ringer's Solution 1,000 ml @ 30 mls/hr Q24H IV ; Start 05/08/18 at 07:00; Stop 05/08/18 at 18:59 Lidocaine HCl (Xylocaine-Mpf 1% 2ml Vial) 2 ml PRN 1X PRN ID PRIOR TO IV START ; Start 05/08/18 at 07:00; Stop 05/09/18 at 06:59 Hydromorphone HCl (Dilaudid) 0.5 mg PRN Q10MIN PRN IV SEV PAIN, Second choice; Start 05/08/18 at 07:00; Stop 05/09/18 at 06:59 Prochlorperazine Edisylate (Compazine) 5 mg PACU PRN PRN IV NAUSEA, MRX1; Start 05/08/18 at 07:00; Stop 05/09/18 at 06:59 Active Scripts Active [place] 5-325 Tablet (Acetaminophen/Hydrocodone Bitart) 1 Each Tablet 1 Each PO PRN Q6HRS PRN as needed for pain Reported Tylenol Extra Strength (Acetaminophen) 500 Mg Tablet 1,000 Mg PO PRN PRN Aspirin 81 Mg Tab.chew 1 Tab PO DAILY [Calcium] 1,200 Mg PO BID Multivitamins (Multivitamin) 1 Each Tablet 1 Tab PO DAILY Lamotrigine 150 Mg Tablet 2 Tab PO HS Seroquel (Quetiapine Fumarate) 200 Mg Tablet 1 Tab PO QHS Losartan Potassium 100 Mg Tablet 100 Mg PO DAILY Paroxetine Hcl 20 Mg Tablet 50 Mg PO DAILY Allergies Allergies: Coded Allergies: No Known Drug Allergies (Unverified , 05/04/18) Physical Exam General: Alert, No acute distress HEENT: Atraumatic, EOMI Lungs: Normal air movement Heart: RRR Abdomen: Soft Extremities: No clubbing, No cyanosis, Normal pulses, Other (Knee: The right total knee incision is well healed. The knee shows active motion from 0-95 degrees. Pain with flexion. The calf is soft and nontender, with a negative Patience's sign. Good plantarflexion and dorsiflexion. Slight warmth and swelling consistent with recent surgery. There is no evidence of infection, DVT, or neurovascular injury. ) Skin: No rashes, No breakdown, No significant lesion Neuro: Normal speech, Sensation intact Psych/Mental Status: Mental status NL, Mood NL VTE Prophylaxis Ordered VTE Prophylaxis Devices: Yes VTE Pharmacological Prophylaxi: Yes Assessment/Plan Assessment/Plan Right knee pain and stiffness s/p right TKA. Dr. Stark and the patient discussed a manipulation and aspiration under anesthesia as she still has very limited range of motion and there is some fluid present. We discussed risks of this procedure such as edelmira-prosthetic fracture. We also discussed the risk of undergoing anesthesia. She will return to formal physical therapy the next day. We will aspirate her knee joint and send this for cultures to check again for infection. She agreed with this plan. She will follow up with me 10-14 days after this. QUINTEN WEBER May 07, 2018 21:22
[~2018-05-08] VITALS: Ht 172.7 cm; Wt 68.9 kg
[~2018-05-08 11:21] MED LIST changes: +ACET500T33 PO; +ASPI-630 PO; +CALCIUM PO; +HYDROmorphone 2 MG/ML VIAL IV PRN; +IV RINGERS,LACTATED 1000ML 1,000 ML IV SCH; +LIDOCAINE 1% PF 2 ML VIAL. ID PRN; +MORPHINE SULFATE 2 MG/ML VIAL. IV PRN; +MULT1TAB52 PO; +ONDANSETRON PF 4 MG/2 ML VIAL. IV PRN; +PROCHLORPERAZINE 10 MG/2 ML VIAL. IV PRN; +fentaNYL PF VIAL 100 MCG/2 ML VIAL IV PRN
[2018-05-08] MEDS ORDERED: ceFAZolin 2GM PREMIX 2 GM/50 ML BAG IV ONE (12:00)
[2018-05-08] MEDS ORDERED: CELECOXIB 100 MG CAPSULE. PO ONE (12:15)
[2018-05-08] MEDS ORDERED: PROPOFOL 20 ML IV ONE (14:08)
[2018-05-08] MEDS ORDERED: ONDANSETRON PF 4 MG/2 ML VIAL. ONE (14:08)
[2018-05-08] MEDS ORDERED: DEXAMETHASONE SOD PHOS 20 MG/5 ML VIAL. ONE (14:08)
[2018-05-08] MEDS ORDERED: SEVOFLURANE 31 TO 60 MINUTES. IH ONE (14:08)
[2018-05-08] MEDS ORDERED: ePHEDrine PF IN SALINE 50 MG/5 ML DISP.SYRIN IV ONE (14:19)
--- NOTE | 2018-05-08 14:41 | PDOC4 ---
Operative Note Operative Note Date of Procedure: May 08, 2018 Pre-Op Diagnosis: Contracture right knee M24.561 Post-Op Diagnosis: Same Procedure: Manipulation of knee joint under general anesthesia CPT 00497 Surgeon: Chrissy Stark MD Engineering Director: Casandra Ramos PA-C Anesthesia: General EBL: None Specimens Obtained: none Complications: none Drains: none Findings: Knee joint aspirated under sterile technique. No fluid able to be aspirated using 16-gauge needle Indications for Procedure: The patient is a 67-year-old woman who had total knee arthroplasty earlier this year. Her flexion has not progressed as well as expected, and we discussed manipulation under anesthesia to improve her range of motion. Infection is one of the things that can cause loss of motion and I recommended aspiration under anesthesia to rule out infection. The patient and I discussed the risks, benefits and alternatives of surgery. We discussed the potential risks of the manipulation such as fracture, persistent stiffness, continued pain, or other potential surgical or anesthetic complications. Procedure in Detail: The patient was identified in the preoperative holding area. The correct right lower extremity was marked by me. The patient was taken to the operating room where general anesthesia was used. The patient was positioned supine on the hospital cart. No antibiotics were given. A timeout procedure was performed. The lateral aspect of the knee joint was prepared in sterile fashion with Chloraprep surgical prep solution. I used sterile gloves and sterile technique, and a 10 mL syringe with a 16-gauge needle. This was directed from the suprapatellar approach into the knee joint, without difficulty , and despite multiple passes with a 16-gauge needle, there was no fluid able to be aspirated. Infection is unlikely with no fluid. Next the manipulation under general anesthesia was performed. The knee was taken through a range of motion. Normanna flexion initially was only 95, but with manipulation increased to 130 of passive flexion. Audible release of adhesions was noted with flexion. Range of motion of the right and left knees was compared and passively was identical, although there is still some residual tightness in the right knee, so that the gravity flexion is different. Despite additional manipulation the difference and gravity flexion remains but the passive range of motion is identical. The patient tolerated the procedure well. There were no apparent complications. The patient was awoke from general anesthesia and returned to the recovery room in stable condition. CHRISSY STARK MD May 08, 2018 14:41
[2018-05-08] MEDS ORDERED: methylPREDNISolone 4 MG TABLET. PO SCH (14:45)
[2018-05-08] MEDS ORDERED: HYDROcodone/APAP 10/325 1 TAB TABLET PO ONE (15:15)
[2018-05-08 15:30] VITALS: BP 110/56
== END 2018-05-08 15:30 | disposition home or self-care (01) ==
LOC: SURG 11:21
PROVIDERS: ATTEND Orthopaedic Surgery
DX: M24.561 Contracture, right knee (principal); I10 Essential (primary) hypertension; E78.5 Hyperlipidemia, unspecified; K21.9 Gastro-esophageal reflux disease without esophagitis; F31.9 Bipolar disorder, unspecified; M19.90 Unspecified osteoarthritis, unspecified site; G62.9 Polyneuropathy, unspecified; Z90.710 Acquired absence of both cervix and uterus; Z98.890 Other specified postprocedural states; Z96.651 Presence of right artificial knee joint; Z90.12 Acquired absence of left breast and nipple; Z83.3 Family history of diabetes mellitus; Z82.49 Family history of ischemic heart disease and other diseases of the circulatory system; Z82.61 Family history of arthritis; Z79.899 Other long term (current) drug therapy; Z79.82 Long term (current) use of aspirin
CPT/HCPCS: 27570; J1100; J2405; J2704; J0690

== ENCOUNTER → 2018-06-12 | Outpatient (CLI) | payer MEDICARE, OTHER ==
[~2018-06-12] MED LIST changes: +ASPI325T8 PO; +BUPIVACAINE MPF 0.25% 10 ML VIAL. ONE; +HYDR-3164 PO; -HYDR-971 PO; -HYDROmorphone 2 MG/ML VIAL IV PRN; +IOHEXOL 180 MG/ML 10 ML VIAL. ONE; -IV RINGERS,LACTATED 1000ML 1,000 ML IV SCH; -LIDOCAINE 1% PF 2 ML VIAL. ID PRN; +LIDOCAINE 1% PF 2 ML VIAL. ONE; -MORPHINE SULFATE 2 MG/ML VIAL. IV PRN; -ONDANSETRON PF 4 MG/2 ML VIAL. IV PRN; -PROCHLORPERAZINE 10 MG/2 ML VIAL. IV PRN; -fentaNYL PF VIAL 100 MCG/2 ML VIAL IV PRN
--- NOTE | 2018-06-12 11:50 | PAIN ---
DATE OF SERVICE: 06/12/2018 INITIAL CONSULTATION FOR PAIN CLINIC CHIEF COMPLAINT: Right knee pain. HISTORY OF PRESENT ILLNESS: The patient is a 67-year-old female who presents with history of pain in the right knee, status post total knee replacement on 03/06/2018. She has significant pain afterwards with still significant pain continuing. The patient reports she has had a re-manipulation, which helped for about 4 days under general anesthetic, but the pain was relieved near to 100% for 4 days following the manipulation. The patient has seen her orthopedic surgeon with still significant pain mostly in the posterior aspect of the right knee in the lateral aspect of the posterior knee. The patient reports it is painful, constant, varies in intensity, spastic, shooting, worse with walking, standing, weightbearing, wakes her up at night, does affect her bowel and bladder control and she feels she has more urgency, but no incontinence. The patient reports it does affect her ability to walk significantly, but she is not using any assistive devices. She has been through physical therapy after the surgery and still continues to do the physical therapy on her own. She is also in chiropractic treatment, which she feels helps as well. She is taking hydrocodone, which does decrease the pain by about 50%. The patient reports frustration that the pain is still persistent even this far out from surgery and all the therapies that she has done and manipulations. Again, the manipulation under general anesthetic was helpful for about 4 days, but is now feeling tight again and very painful to the point where it is becoming more difficult for her to walk, although she does have good range of motion with therapy. The patient reports her disability from 0-10, 10 being the worst, is a 6 with family and home responsibilities, 7 with recreation, 5 with social activity and occupation, 0 with sexual behavior, 1 with self-care and 5 with life support activities. The patient reports no complete loss of function, but feels unstable on her right knee because of the pain. Left side is nontender or has no complaints. PAST MEDICAL HISTORY: Significant for hypertension, arthritis, osteoporosis, previous left breast cancer with mastectomy and chemotherapy. Other surgeries include right total knee replacement 03/06/2018. CURRENT MEDICATIONS: Include losartan, paroxetine, daily baby aspirin, lamotrigine, and hydrocodone. ALLERGIES: The patient has no known allergies. FAMILY HISTORY: Significant for diabetes and lung cancer. SOCIAL HISTORY: The patient does not drink alcohol, does not smoke, does not use any illegal, illicit or recreational drugs. She is , lives with her spouse locally in [place], [place]. REVIEW OF SYSTEMS: The patient's review of systems is positive for those items mentioned in history of present illness. All systems reviewed and otherwise negative. It is complete, full and well documented on the patient's chart. PHYSICAL EXAMINATION: VITAL SIGNS: Today, the patient's blood pressure is 120/80, pulse is 94, respirations 18, temperature is 98.3 degrees Fahrenheit, height is 5 feet 8 inches and weight is 158 pounds. GENERAL: The patient is awake, alert, oriented, appropriate, very pleasant demeanor. HEENT: Head is normocephalic, atraumatic. Extraocular movements intact and symmetrical. Oral cavity: Mucous membranes are moist and pink. Dentition intact. NECK: Shows anterior throat supple without palpable lymphadenopathy noted. Swallow reflex symmetrical. CHEST: Shows normal on inspection. Breath sounds clear to auscultation bilaterally. HEART: Shows S1, S2 clear. No murmurs auscultated. ABDOMEN: Soft, nontender, nondistended. No palpable organomegaly is noted. No rebound or guarding demonstrated. BACK: Shows spine grossly in the midline, normal appearing thoracic kyphosis and lumbar lordotic curvature. The patient has full rotational motion of cervical spine as well as lumbar spine without difficulty or tenderness. EXTREMITIES: The patient's lower extremities show deep tendon reflexes at 1+ in the patellar and tendo calcaneus tendons. Right knee shows a well-healed surgical scarring. Left shows no scar. The right knee is slightly larger with some medial edema on appearance compared to the left knee, but without any pitting edema. The patient shows no specific tenderness over the medial aspect of the knee or the patella with patellar tendon tenderness; however, posteriorly on the lateral aspect in the popliteal fossa as well as in the inferior aspect of the hamstrings posteriorly diffusely. The patient has good range of motion. It is tender and grimacing with motion of the knee including passive and active motion with good hinge motion and does flex the knee and extend significantly past 120 degrees without limitation, but significantly tender with tightness described on this motion on the right side. Peripheral pulses are 1+ posterior tibial, patient with surgical scarring in the right ankle as well from previous surgeries. The patient's knee shows no discoloration compared to the left. No mottling, no difference in temperature to touch. No erythema, again no specific edema or other discoloration. The patient is able to stand and has difficulty putting weight on her right knee and it is quite painful for her to get up from sitting position and she is favoring using her left leg significantly to do this. With walking, she does have a limp and favors the right lower extremity, again not using any assistive devices to ambulate. SKIN: The patient's skin otherwise shows warm and dry, good turgor. No edema sores, rashes or bruising. IMPRESSION: This is a 67-year-old female with, 1. History of right total knee replacement 03/06/2018 with continued postoperative pain, status post manipulation under general anesthetic as well as ongoing physical therapy with good range of motion, but significant pain mostly posteriorly. 2. Hypertension. 3. Arthritis. 4. History of breast cancer. PLAN: Options were discussed with the patient including conservative medical management, continued physical therapy, interventional techniques and she does wish interventional techniques. We discussed a lumbar sympathetic block as this is unusual for her to have pain thus for past total joint replacement with good therapeutic results with physical therapy and manipulation, but with persistent pain, which may have a sympathetic component. The patient is interested in pursuing this. We described the procedure using description as well as anatomical models to describe it. Risks were discussed including but not limited to bleeding, infection, possibility of epidural hematoma and subsequent neurological compromise, dural punctures, headaches, spinal cord and/or nerve damage, hypotension as well as potential injection arterially of the local anesthetic with resuscitative measures if necessary as well as exposure to fluoroscopy and poor results regarding pain control. The patient understands and wishes to proceed. The patient will return to the clinic in approximately 2 weeks for followup, was counseled on return appointment, activity level and side effects to be aware of. DIAGNOSIS: Right postoperative chronic knee pain with sympathetic component. PROCEDURE: Right lumbar sympathetic block using sterile prep and drape using local anesthetic and using C-arm fluoroscopic guidance. MEDICATION INJECTED: A total of 5 mL of 0.25% bupivacaine as well as 2 mL of Isovue for contrast. CONDITION AT DISCHARGE: Stable. The patient tolerated the procedure well, had no complications. SEAN STERN MD DR: LAURA/mikel JOB#: [id number] / [id number] Patrick Oliver MD
== END | disposition home or self-care (01) ==
LOC: PNCL 08:45
PROVIDERS: ATTEND Anesthesiology
DX: G89.28 Other chronic postprocedural pain (principal); M25.561 Pain in right knee; I10 Essential (primary) hypertension; Z96.651 Presence of right artificial knee joint; M19.90 Unspecified osteoarthritis, unspecified site; M81.0 Age-related osteoporosis without current pathological fracture; Z90.710 Acquired absence of both cervix and uterus; Z90.12 Acquired absence of left breast and nipple; Z85.3 Personal history of malignant neoplasm of breast; Z79.82 Long term (current) use of aspirin; Z79.899 Other long term (current) drug therapy; Z83.3 Family history of diabetes mellitus; Z80.1 Family history of malignant neoplasm of trachea, bronchus and lung
CPT/HCPCS: 64520; J3490; Q9965; 77003

== ENCOUNTER → 2018-07-25 | Outpatient (CLI) | payer MEDICARE, OTHER ==
[~2018-07-25] MED LIST changes: -LIDOCAINE 1% PF 2 ML VIAL. ONE; +LOSA100T14 PO; -LOSA100T7 PO; -LOSA25TA5 PO; +LOSA25TA54 PO; -OXYC-323 PO; +OXYC1TAB15 PO; +methylPREDNISolone ACETATE 40 MG/ML VIAL. ONE; +methylPREDNISolone ACETATE 80 MG/ML VIAL. ONE
--- NOTE | 2018-07-25 19:13 | PAIN ---
DATE OF SERVICE: 07/25/2018 PROGRESS NOTE FOR PAIN CLINIC DIAGNOSIS: Right knee joint pain with postoperative chronic pain from right total knee arthroplasty. HISTORY OF PRESENT ILLNESS: The patient is a 67-year-old female who returns for followup status post right lumbar sympathetic block on 06/12/2018. The patient reports she did well for about 1 day after the injection. After that, the pain returned, but it was significantly improved for the remainder of that day and later that night. The patient reports, otherwise, the pain is worse with standing, walking, putting weight on her knee, also wakens her from sleep occasionally, not every night, but about every 8 hours if she lies on her right side, especially. The patient reports it is a 5 on a scale of 10 at all times, average, worst, least and is a 5 on a scale of 10 today. Again, worse with weightbearing. It is described as aching, shooting, sometimes it is in the lower leg and foot, cramping, stabbing pain as well on the right side. The patient reports no new motor or sensory deficits, no new changes. Initially, she was feeling better, just for that day of her last injection, was distance walking and doing activities at home and traveling, but after that, the pain returned basically to its baseline. PHYSICAL EXAMINATION: VITAL SIGNS: Today, the patient's blood pressure is 82/56, pulse 59, respirations 18, temperature 98.2 degrees Fahrenheit. Height is 5 feet 8 inches, weight is 163 pounds. GENERAL: The patient is awake, alert, oriented, appropriate, very pleasant demeanor. HEENT: Head shows normocephalic, atraumatic. Extraocular movements intact and symmetrical. Oral cavity: Mucous membranes moist and pink. Dentition intact. NECK: Shows anterior throat supple without palpable lymphadenopathy noted. Swallow reflex symmetrical. CHEST: Shows normal with inspection. Breath sounds clear to auscultation bilaterally. HEART: Shows S1, S2 clear. No murmurs auscultated. ABDOMEN: Soft, nontender, nondistended. No palpable organomegaly is noted. No rebound or guarding demonstrated. BACK: Shows spine grossly in the midline. Normal appearing thoracic kyphosis and lumbar lordotic curvature. Lumbar paraspinous muscle shows symmetrical on inspection and palpation shows only very mild tenderness in the low lumbar distribution, but without radiation. The patient has good rotational motion in lumbar spine both laterally as well as extension and flexion without difficulty. EXTREMITIES: The patient's lower extremities show well-healed surgical scar over the right knee. Patellar tendons are 1+ in the deep tendon reflexes bilaterally. Motor exam is approximately 4 on a scale of 5 with dorsiflexion, extension, quadriceps and hamstring flexion and 5/5 on the left. No peripheral edema is noted. Peripheral pulses are 1+ posterior tibial bilaterally. Options were discussed with the patient. The patient's old chart was reviewed as his current medication regimen updated, current review of systems updated today as well. He is to proceed with a second lumbar sympathetic block today with fluoroscopic guidance. Risks were again discussed including, but not limited to, bleeding, infection, possibility of intravascular injection sequelae, spread of local anesthetic and numbness, side effects of steroid medication, dural puncture, headaches, spinal cord and/or nerve damage as well as side effects of exposure to fluoroscopy and possible total spinal block resuscitative measures as well as poor results regarding pain control. The patient understands and wished to proceed. The patient will return to clinic in approximately 2 weeks for followup. She was counseled to return appointment, activity level and side effects to be aware of. DIAGNOSIS: Right knee pain, postoperative, chronic, status post total knee arthroplasty. PROCEDURE: Right lumbar sympathetic block using sterile prep and drape under local anesthetic using C-arm fluoroscopic guidance. MEDICATION INJECTED: A total of 5 mL of 0.25% bupivacaine and 2 mL of Isovue for contrast with good local spread to the anterior lateral aspect of the L3 vertebral body without uptake on digital subtraction. CONDITION AT DISCHARGE: Stable. The patient tolerated the procedure well, had no complications. SEAN STERN MD DR: LAURA/mikel JOB#: [id number] / [id number]
== END | disposition home or self-care (01) ==
LOC: PNCL 13:25
PROVIDERS: ATTEND Anesthesiology
DX: G89.28 Other chronic postprocedural pain (principal); Z98.890 Other specified postprocedural states
CPT/HCPCS: 64520; J3490; Q9965; J1030; J1040

== ENCOUNTER → 2018-08-09 | Outpatient (CLI) | payer MEDICARE ==
[~2018-08-09] MED LIST changes: -BUPIVACAINE MPF 0.25% 10 ML VIAL. ONE; -IOHEXOL 180 MG/ML 10 ML VIAL. ONE; -methylPREDNISolone ACETATE 40 MG/ML VIAL. ONE; -methylPREDNISolone ACETATE 80 MG/ML VIAL. ONE
--- NOTE | 2018-08-09 14:39 | PAIN ---
DATE OF SERVICE: 08/09/2018 PROGRESS NOTE FOR PAIN CLINIC DIAGNOSES: Right knee joint pain with primary postop chronic pain from right total knee arthroplasty. HISTORY OF PRESENT ILLNESS: The patient is a 67-year-old female who returns for followup status post lumbar sympathetic blocks on the right x 2 with no significant improvement. The patient reports the first injection had maybe one day's worth of decreased pain if that, but the second one had 0 improvement in the right knee pain, worse with walking, standing and weightbearing. She reports she started to notice pain in the left side, left hip and leg as she is favoring her right leg significantly. The patient reports it is stabbing pain, aching, sharp, shooting in the base, back of the right knee and in the lateral aspect of the right knee to the calf. The patient reports it is a 7 on a scale of 10 at its worst, 5 on average and a 4 on a scale of 10 at its least and is 5 today. The patient reports no new motor or sensory deficits, no new changes, better with being off of her feet, sitting or lying down, does not awaken her from sleep at night, but much worse with weightbearing, standing and walking. PHYSICAL EXAMINATION: VITAL SIGNS: The patient's blood pressure 107/67, pulse 84, respirations 18, temperature 98.3 degrees Fahrenheit, height is 5 feet 8 inches, weight 162 pounds. GENERAL: The patient is awake, alert, oriented, appropriate, very pleasant demeanor. HEENT: Head shows normocephalic, atraumatic. Extraocular movements intact and symmetrical. Oral cavity: Mucous membranes moist and pink. Dentition is intact. NECK: Shows anterior throat supple without palpable lymphadenopathy noted. Swallow reflex symmetrical. CHEST: Shows normal with inspection. Breath sounds clear to auscultation bilaterally. HEART: Shows S1, S2 clear. No murmurs auscultated. ABDOMEN: Soft, nontender, nondistended. No palpable organomegaly is noted. No rebound or guarding demonstrated. BACK: Shows spine grossly in the midline. Normal appearing thoracic kyphosis, lumbar lordotic curvature. LOWER EXTREMITIES: The patient's lower extremities show well-healed surgical scarring over the right knee. Deep tendon reflexes are 1+ in the patellar and tendo calcaneus tendons are equal. Motor exam is approximately 4 on a scale of 5 on the right dorsiflexion, extension, quadriceps and hamstring and 5/5 on the left. Peripheral pulses are 1+ posterior tibia. No peripheral edema is noted bilaterally. PLAN: Options were discussed with the patient. The patient's old chart was reviewed as her current medication regimen updated. Current review of systems updated today as well. We will hold on any further injections as she is not getting any significant relief from the sympathetic blocks. We discussed some other strategies with physical therapy as well as water therapy and anti-inflammatories. We will try a prescription of Toradol nasal preparation and see if this may decrease the pain to some extent. The patient is willing to try this. We will also have her follow up with her orthopedic surgeon regarding her left hip and left leg pain if f it gets worse. Will maintain physical therapy exercises, stretching and strengthening on her own in the meantime as well and the patient will follow up at this time on as needed basis. SEAN STERN MD DR: LAURA/mikel JOB#: [id number] / [id number]
== END | disposition home or self-care (01) ==
LOC: PNCL 13:17
PROVIDERS: ATTEND Anesthesiology
DX: M25.561 Pain in right knee (principal); G89.29 Other chronic pain; Z96.651 Presence of right artificial knee joint
CPT/HCPCS: G0463

== ENCOUNTER → 2018-09-11 | Outpatient (CLI) | payer MEDICARE | END | disposition home or self-care (01) | LOC: LAB 14:16 | PROVIDERS: ATTEND Neurological Surgery | DX: M54.5 Low back pain (principal) | CPT/HCPCS: 36415; 85651; 86141 ==

== ENCOUNTER 2018-10-09 13:00 | Day surgery (SDC) | payer MEDICARE ==
[~2018-10-09 13:00] MED LIST changes: +HYDROmorphone 2 MG/ML VIAL IV PRN; +IV RINGERS,LACTATED 1000ML 1,000 ML IV SCH; +LIDOCAINE 1% PF 2 ML VIAL. ID PRN; +MORPHINE SULFATE 2 MG/ML VIAL. IV PRN; +ONDANSETRON PF 4 MG/2 ML VIAL. IV PRN; +PROCHLORPERAZINE 10 MG/2 ML VIAL. IV PRN; +fentaNYL PF VIAL 100 MCG/2 ML VIAL IV PRN
[2018-10-09] MEDS ORDERED: LIDOCAINE 2% JELLY 6ML IN APPLICATOR. MM ONE (14:15)
[2018-10-09] MEDS ORDERED: LIDOCAINE 2% VISCOUS 15 ML SOLUTION. SWSW ONE (14:15)
[2018-10-09] MEDS ORDERED: BENZOCAINE ONE 20% MUCOSAL SPRAY. MM (14:15)
[2018-10-09] MEDS ORDERED: LIDOCAINE 2% PF 5 ML VIAL. ONE (14:28)
[2018-10-09] MEDS ORDERED: PROPOFOL 20 ML IV ONE (14:28)
[2018-10-09 15:30] VITALS: BP 115/65
--- NOTE | 2018-10-09 16:15 | CARD ---
MR#: [id number] Date of Study: 10/09/2018 Ordering Physician: FAINA LEE, Referring Physician: FAINA LEE, Tech: Jaja Eckert APPROVED REPORT EXAM: Transesophageal echocardiogram with color flow Doppler. INDICATION Atrial Fibrillation RISK FACTORS Hypertension Tricuspid Valve TR P. Bqexsdth322id/sRAP [id number] TR Peak Gr.05clWkKHNI30zvHi Reason For Test : Rule out Intracardiac Thrombus. PROCEDURE After obtaining informed consent, patient underwent transesophageal echo in the PACU. Type of Sedation : General Anesthesia Sedation was administered by Kedar FAITH. Sedation was achieved with Propofol 200mg intravenously. Transesophageal probe was inserted and advanced into esophagus by Yosvany Lee MD. The AMY was performed without complications. Throughout the procedure, the blood pressure, pulse oximetry, cardiac rhythm, and rate were monitored . The patient tolerated the procedure without adverse effects. Recovery from general anesthesia was une ventful and vital signs were stable. Cristofer Harrington CRNA and Red Louis MD present LEFT VENTRICLE The left ventricle is normal size. There is normal left ventricular wall thickness. The left ventricu lar systolic function is normal and the ejection fraction is within normal range. EF 55% There is nor mal LV segmental wall motion. The left ventricular diastolic function and filling is normal for age. No left ventricle thrombus noted on this study. There is no ventricular septal defect visualized. The re is no left ventricular aneurysm. There is no mass noted in the left ventricle. RIGHT VENTRICLE The right ventricle is normal size. There is normal right ventricular wall thickness. The right ventr icular systolic function is normal. ATRIA The left atrium size is normal. The right atrium size is normal. The interatrial septum is intact wit h no evidence for an atrial septal defect or patent foramen ovale as noted on 2-D or Doppler imaging. There is no thrombus noted in the left atrial appendage. AORTIC VALVE The aortic valve is thickened but opens well. Doppler and Color Flow revealed no significant aortic r egurgitation. There is no significant aortic valvular stenosis. MITRAL VALVE The mitral valve is normal in structure and function. There is no evidence of mitral valve prolapse. There is no mitral valve stenosis. Doppler and Color-flow revealed trace mitral regurgitation. TRICUSPID VALVE The tricuspid valve is normal in structure and function. Doppler and Color Flow revealed trace tricus pid regurgitation with an estimated PAP of 28 mmHg. There is no tricuspid valve stenosis. PULMONIC VALVE The pulmonary valve is normal in structure and function. Doppler and Color Flow revealed no pulmonic valvular regurgitation. There is no pulmonic valvular stenosis. GREAT VESSELS The aortic root is normal in size. The ascending aorta is normal in size. The IVC is normal in size a nd collapses >50% with inspiration. Critical Notification Critical Value: No <Conclusion> The left ventricular systolic function is normal and the ejection fraction is within normal range. EF 55% There is normal LV segmental wall motion. There is no thrombus noted in the left atrial appendage. Doppler and Color Flow revealed trace tricuspid regurgitation with an estimated PAP of 28 mmHg. Signed by : Faina Lee, Electronically Approved : 10/09/2018 16:15:09
== END 2018-10-09 15:52 | disposition home or self-care (01) ==
LOC: SURG 13:00
PROVIDERS: ATTEND Internal Medicine Cardiovascular Disease
DX: I48.0 Paroxysmal atrial fibrillation (principal); I08.1 Rheumatic disorders of both mitral and tricuspid valves; I10 Essential (primary) hypertension; F32.9 Major depressive disorder, single episode, unspecified; Z85.3 Personal history of malignant neoplasm of breast; Z90.710 Acquired absence of both cervix and uterus; Z98.890 Other specified postprocedural states; Z80.1 Family history of malignant neoplasm of trachea, bronchus and lung; Z90.12 Acquired absence of left breast and nipple; Z79.899 Other long term (current) drug therapy
CPT/HCPCS: 76376; 93312; 93320; 93325; J2001; J2704

== ENCOUNTER → 2019-01-14 | Outpatient (CLI) | payer MEDICARE ==
[~2019-01-14] MED LIST changes: -HYDROmorphone 2 MG/ML VIAL IV PRN; -IV RINGERS,LACTATED 1000ML 1,000 ML IV SCH; -LIDOCAINE 1% PF 2 ML VIAL. ID PRN; -MORPHINE SULFATE 2 MG/ML VIAL. IV PRN; -ONDANSETRON PF 4 MG/2 ML VIAL. IV PRN; -PROCHLORPERAZINE 10 MG/2 ML VIAL. IV PRN; -fentaNYL PF VIAL 100 MCG/2 ML VIAL IV PRN
--- NOTE | 2019-01-14 10:17 | RAD ---
Examination: CT CHEST WO CONTRAST History: Lung nodule Comparison/Correlation: 10/18/2018 CTA of the chest performed at [facility]. Findings: Axial images of chest were obtained without contrast. Sagittal and coronal reformatted images were provided. Left mastectomy noted. Small nodule involving the right thyroid lobe. Associated calcification is present. It is similar to prior exam. Calcified subcarinal and right hilar lymph nodes are present. Few calcified left hilar lymph nodes are small in size. Punctate nodules involving the left lung apex are slightly decreased compared to the prior exam. Within the left lateral lung base within the lower lobe, there is linear scarring or linear atelectasis present at the site of the previously present right shaped nodule. No new pulmonary nodule or mass identified in the interval. Minimal right middle lobe linear scarring or discoid atelectasis is present. This is improved in the interval. Partially visualized upper abdomen is unremarkable. Nodular appearance of the adrenal gland on the left is most compatible with benign adenomatous involvement. Impression: Decrease in nodularity, atelectasis, and infiltrates in the interval. Residual linear scarring or atelectasis is present at the site of the previously described left lower lobe pleural-based nodule. No suspicious new process. PQRS Compliance Statement: One or more of the following individualized dose reduction techniques were utilized for this examination: 1. Automated exposure control 2. Adjustment of the mA and/or kV according to patient size 3. Use of iterative reconstruction technique Electronically signed by: Antonio Kelley MD (01/14/2019 10:14 AM) [id number]
== END | disposition home or self-care (01) ==
LOC: CT 09:01
PROVIDERS: ATTEND Internal Medicine Pulmonary Disease
DX: J98.11 Atelectasis (principal); R91.8 Other nonspecific abnormal finding of lung field; E04.1 Nontoxic single thyroid nodule; E07.89 Other specified disorders of thyroid; Z90.12 Acquired absence of left breast and nipple
CPT/HCPCS: 71250

== ENCOUNTER 2019-02-17 16:01 | Emergency (ER) | payer MEDICARE ==
[~2019-02-17] VITALS: Ht 170.2 cm; Wt 71.7 kg
[2019-02-17 16:34] VITALS: BP 134/69
--- NOTE | 2019-02-17 16:45 | PHYS DOC ---
Past Medical History Past Medical History: Bipolar, Depression, Hypertension Past Surgical History: Hysterectomy, Other Additional Past Surgical Histo: LT MASTECTOMY, BILAT KNEE REPLACEMENTS, bilat carpal tunnel Alcohol Use: None Drug Use: None Adult General Chief Complaint Chief Complaint: HAND PROBLEM HPI HPI Patient is a 68 year old female who presents with right hand pain. She states that she was moving a treadmill and smashed her right hand in the treadmill. This was around 11:00 today. Denies any pain at this time states she took Tylenol before arrival. States she's had a tetanus shot within last 5 years. Review of Systems Review of Systems Constitutional: Denies fever or chills [] Eyes: Denies change in visual acuity, redness, or eye pain [] HENT: Denies nasal congestion or sore throat [] Respiratory: Denies cough or shortness of breath [] Cardiovascular: No additional information not addressed in HPI [] GI: Denies abdominal pain, nausea, vomiting, bloody stools or diarrhea [] : Denies dysuria or hematuria [] Musculoskeletal: Reports R hand pain. Integument: Denies rash or skin lesions [] Neurologic: Denies headache, focal weakness or sensory changes [] Endocrine: Denies polyuria or polydipsia [] Complete systems were reviewed and found to be within normal limits, except as documented in this note. Allergies Allergies Allergies Coded Allergies Type Severity Reaction Last Updated Verified No Known Drug Allergies 10/09/18 No Physical Exam Physical Exam Constitutional: Well developed, well nourished, no acute distress, non-toxic appearance. [] HENT: Normocephalic, atraumatic, bilateral external ears normal, oropharynx moist, no oral exudates, nose normal. [] Eyes: PERRLA, EOMI, conjunctiva normal, no discharge. [] Neck: Normal range of motion, no tenderness, supple, no stridor. [] Cardiovascular:Heart rate regular rhythm, no murmur [] Lungs & Thorax: Bilateral breath sounds clear to auscultation [] Abdomen: Bowel sounds normal, soft, no tenderness, no masses, no pulsatile masses. [] Skin: Warm, dry, no erythema, no rash. [] Back: No tenderness, no CVA tenderness. [] Extremities: edema to R hand with, full hand of motion and bruising. Neurologic: Alert and oriented X 3, normal motor function, normal sensory function, no focal deficits noted. [] Psychologic: Affect normal, judgement normal, mood normal. [] Current Patient Data Vital Signs Vital Signs Date Time Temp Pulse Resp B/P (MAP) Pulse Ox O2 Delivery O2 Flow Rate FiO2 02/17/19 16:34 98.2 59 20 134/69 (90) 97 Room Air 98.2 EKG EKG [] Radiology/Procedures Radiology/Procedures []PATIENT: TIKI BARFIELD EACCOUNT: [id number]#: [id number] : 1950 LOCATION: ER AGE: 68 SEX: F EXAM STATUS: PRE ER ORD. PHYSICIAN: JEFFERSON RAVI APRN REASON: Smashed MCs in between funnitures PROCEDURE: HAND RIGHT 3V Right hand 3 views. HISTORY: "Smashed metacarpals between furniture, swelling 3 views were taken of the right hand. There is arthritis at the wrist. There is joint space narrowing between the navicular and trapezium. 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 There is arthritis at the interphalangeal joint of the thumb with joint space narrowing. There is mild arthritis at the distal interphalangeal joints of the fingers with mild spurring and joint space narrowing. There is no acute fracture. There is slight irregularity at the distal fifth metacarpal possibly an old injury. There is soft tissue swelling. IMPRESSION: 1. 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 2. No acute fracture. 3. Soft tissue swelling. Electronically signed by: Giovani Núñez MD (02/17/2019 5:02 PM) [facility] DICTATED and SIGNED BY: GIOVANI NÚÑEZ MD DATE: 02/17/19 1702 Course & Med Decision Making Course & Med Decision Making Pertinent Labs and Imaging studies reviewed. (See chart for details) Will get X-ray -16:45 X-ray is negative-1719. Will d/c home. Dragon Disclaimer Dragon Disclaimer This electronic medical record was generated, in whole or in part, using a voice recognition dictation system. Departure Departure Impression: Primary Impression: Hand pain, right Disposition: 01 HOME, SELF-CARE Condition: STABLE Referrals: KAMRYN HUTCHINSON MD (PCP) Patient Instructions: Hand Contusion, RICE - Routine Care for Injuries Additional Instructions: Thank you for visiting [facility]. We appreciate you trusting us with your care. If any additional problems come up don't hesitate to return to visit us. Please follow up with your primary care provider so they can plan additional care if needed and know about the problem that you had. If symptoms worsen come back to the Emergency Department. Any concerning symptoms that start such as chest pain, shortness of air, weakness or numbness on one side of the body, running high fevers or any other concerning symptoms return to the ER. JEFFERSON RAVI APRN Feb 17, 2019 16:45
--- NOTE | 2019-02-17 17:05 | RAD ---
Right hand 3 views. HISTORY: "Smashed metacarpals between furniture, swelling 3 views were taken of the right hand. There is arthritis at the wrist. There is joint space narrowing between the navicular and trapezium. 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 There is arthritis at the interphalangeal joint of the thumb with joint space narrowing. There is mild arthritis at the distal interphalangeal joints of the fingers with mild spurring and joint space narrowing. There is no acute fracture. There is slight irregularity at the distal fifth metacarpal possibly an old injury. There is soft tissue swelling. IMPRESSION: 1. 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 2. No acute fracture. 3. Soft tissue swelling. Electronically signed by: Giovani Núñez MD (02/17/2019 5:02 PM) [facility]
== END 2019-02-17 17:30 | disposition home or self-care (01) ==
LOC: ER 16:01
DX: S60.221A Contusion of right hand, initial encounter (principal); M19.031 Primary osteoarthritis, right wrist; M19.041 Primary osteoarthritis, right hand; F31.9 Bipolar disorder, unspecified; I10 Essential (primary) hypertension; W31.89XA Contact with other specified machinery, initial encounter; Y93.89 Activity, other specified; Y92.89 Other specified places as the place of occurrence of the external cause; Y99.8 Other external cause status
CPT/HCPCS: 73130; 99284

== ENCOUNTER → 2019-03-18 | Outpatient (CLI) | payer MEDICARE ==
[2019-02-17 16:34] VITALS: BP 134/69
--- NOTE | 2019-03-18 11:00 | CARD ---
MR#: [id number] Date of Study: 03/18/2019 Ordering Physician: FAINA STONE, Referring Physician: FAINA STONE, Tech: Kendra Jordan [facility] APPROVED REPORT EXAM: Two-dimensional and M-mode echocardiogram with Doppler and color Doppler. Other Information Quality : AverageHR: 68bpm Rhythm : NSR INDICATION Atrial Fibrillation 2D DIMENSIONS RVDd3.1 (2.9-3.5cm)Left Atrium(2D)3.6 (1.6-4.0cm) IVSd1.1 (0.7-1.1cm)Aortic Root(2D)3.0 (2.0-3.7cm) LVDd4.9 (3.9-5.9cm)LVOT Diameter1.9 (1.8-2.4cm) PWd1.2 (0.7-1.1cm)LVDs3.5 (2.5-4.0cm) FS (%) 28.6 %SV62.1 ml LVEF(%)54.9 (>50%) M-Mode DIMENSIONS Left Atrium(MM)3.84 (2.5-4.0cm)Aortic Root3.13 (2.2-3.7cm) Aortic Valve AoV Peak Bradley.146.5cm/sAoV VTI34.1cm AO Peak GR.8.6mmHgLVOT Peak Bradley.84.5cm/s AO Mean GR.5mmHgAVA (VMAX)1.70cm2 JAMES (VTI)1.70cm2 Mitral Valve MV E Xcdcvyao19.3cm/sMV DECEL BSQP340ag MV A Lgpbbcsq89.8cm/sE/A Ratio1.1 Pulmonary Valve PV Peak Egmeipgx63.5cm/s Tricuspid Valve TR P. Vapsydvy355jp/sRAP FKQVBWDD1wbAz TR Peak Gr.51hxFbCJPQ83djKm LEFT VENTRICLE The left ventricle is normal size. There is mild concentric left ventricular hypertrophy. The left ve ntricular systolic function is normal and the ejection fraction is within normal range. The Ejection Fraction is 55-60%. There is normal LV segmental wall motion. Transmitral Doppler flow pattern is Gra de II-pseudonormal filling dynamics. RIGHT VENTRICLE The right ventricle is normal size. There is normal right ventricular wall thickness. The right ventr icular systolic function is normal. ATRIA The left atrium size is normal. The right atrium size is normal. The interatrial septum is intact wit h no evidence for an atrial septal defect or patent foramen ovale as noted on 2-D or Doppler imaging. AORTIC VALVE The aortic valve is normal in structure and function. The aortic valve is trileaflet. Doppler and Col or Flow revealed no significant aortic regurgitation. There is no significant aortic valvular stenosi s. There is no aortic valvular vegetation. MITRAL VALVE The mitral valve is mildly thickened. There is no evidence of mitral valve prolapse. There is no mitr al valve stenosis. Doppler and Color-flow revealed trace mitral regurgitation. TRICUSPID VALVE The tricuspid valve is normal in structure and function. Doppler and Color Flow revealed mild tricusp id regurgitation. The PA pressure was estimated at 27 mmHg. There is no tricuspid valve prolapse or v egetation. There is no tricuspid valve stenosis. PULMONIC VALVE The pulmonic valve is not well visualized. GREAT VESSELS The aortic root is normal in size. The ascending aorta is normal in size. The IVC is normal in size a nd collapses >50% with inspiration. PERICARDIAL EFFUSION There is no evidence of significant pericardial effusion. Critical Notification Critical Value: No <Conclusion> The left ventricle is normal size. The left ventricular systolic function is normal and the ejection fraction is within normal range. The Ejection Fraction is 55-60%. There is mild concentric left ventricular hypertrophy. There is no significant aortic valvular stenosis. Doppler and Color Flow revealed no significant aortic regurgitation. Doppler and Color-flow revealed trace mitral regurgitation. Doppler and Color Flow revealed mild tricuspid regurgitation. The PA pressure was estimated at 27 mmHg. Signed by : Pj Zapata MD Electronically Approved : 03/18/2019 11:00:23
== END | disposition home or self-care (01) ==
LOC: ECHO 08:10
PROVIDERS: ATTEND Internal Medicine Cardiovascular Disease
DX: I36.1 Nonrheumatic tricuspid (valve) insufficiency (principal); I51.7 Cardiomegaly; I48.0 Paroxysmal atrial fibrillation
CPT/HCPCS: 93306

== ENCOUNTER → 2019-12-30 | Outpatient (CLI) | payer MEDICARE ==
[~2019-12-30] MED LIST changes: +APIX5TAB PO; +BUPIVACAINE MPF 0.5% 10 ML VIAL for KCIC. IJ ONE; +IOHEXOL 300 MG/ML 50 ML VIAL. INT ART ONE; -LAMO150T2 PO; +LAMO150T4 PO; +LIDOCAINE 1% Multi-Dose 20 ML VIAL. ID ONE; +MULT-445 PO; -MULT1TAB52 PO; -PARO25TA3 PO; +PARO25TA4 PO; +PREG-9 PO; -PREG75CA PO; +methylPREDNISolone ACETATE 40 MG/ML VIAL. INT ART ONE
--- NOTE | 2019-12-30 15:19 | KCIC ---
PROCEDURE Therapeutic left hip injection using fluoroscopic guidance. HISTORY Hip pain. TECHNIQUE The procedure was explained to the patient as were potential risks, including infection, bleeding or allergic reaction. The increased risk of bleeding while on blood thinners was also specifically discussed, but felt to not be worth the risk of temporarily stopping the blood thinners. All questions were answered. Informed written and verbal consent was obtained. The hip was prepped and draped in the usual sterile manner. Following administration of local anesthetic, a 22-gauge spinal needle was advanced into the hip joint without difficulty, with care taken to avoid the vascular structures. Stylet was removed and following negative aspiration, a mixture of 4 cc Omnipaque-300, 2 cc (80 mg) Depo-Medrol, 4 cc bupivacaine and 4 cc 1% lidocaine were injected without difficulty. Fluoroscopy demonstrates uniform and satisfactory distribution of the injection through the hip. The needle was removed. There was good hemostasis at the injection site. The patient left in stable condition without immediate complication. Patient was advised as to potential postprocedural complications and advised to contact their physician or the emergency room in such event. A single spot image was obtained. FLUOROSCOPY TIME: 23 seconds Electronically signed by: Maximiliano Paula MD (12/30/2019 3:17 PM) [id number]
== END ==
LOC: KCIC MRI 12:14
PROVIDERS: ATTEND Orthopaedic Surgery Sports Medicine
DX: M25.552 Pain in left hip (principal)
CPT/HCPCS: 20610; 77002; J1030; J3490; Q9967

== ENCOUNTER → 2020-01-10 | Outpatient (CLI) | payer MEDICARE ==
[~2020-01-10] MED LIST changes: -BUPIVACAINE MPF 0.5% 10 ML VIAL for KCIC. IJ ONE; +IOHEXOL 300 MG/ML 100ML VIAL. IV ONE; -IOHEXOL 300 MG/ML 50 ML VIAL. INT ART ONE; -LIDOCAINE 1% Multi-Dose 20 ML VIAL. ID ONE; -methylPREDNISolone ACETATE 40 MG/ML VIAL. INT ART ONE
--- NOTE | 2020-01-10 16:50 | RAD ---
EXAM: CT left upper extremity with and without IV contrast INDICATION: Left forearm mass. 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 TECHNIQUE: Helical CT of the left arm from the mid humerus to the wrist was performed with and without IV contrast. All CT scans performed at this facility utilize dose optimization techniques as appropriate to the exam, including the following: Automated exposure control and adjustment of the mA and/or KV according to patient size (this includes techniques or standardized protocols for targeted exams where dose is indication/reason for exam). IV CONTRAST: 75 mL Omnipaque 300 was administered. COMPARISON: None FINDINGS: In the medial triceps muscle approximately 8 cm proximal to the olecranon fossa is an oval circumscribed hypodense mass with mild internal enhancement, from a mean Hounsfield units of 31 on the precontrast images (image 25 of 476 on series 4) to 54 Hounsfield units (image 263 of 476 of series 4). This mass measures 2.3 cm craniocaudal by 1.5 cm anteroposterior and 1.0 cm mediolateral and is oval and circumscribed, best illustrated on sagittal images 48 of 85 on series 7 and 47 of 85 on series 9. . This may be difficult to identify on clinical exam given its location within the muscle but is potentially visible on ultrasound. The clinically palpable lump on the ulnar side of the left forearm is oval, circumscribed, and enhances from a mean Hounsfield density of 10 on the precontrast images (image 50 of series 6) to 39 (image 50 of series 8) on the postcontrast images. It is aligned and contiguous with the neurovascular structures in the distribution of the ulnar nerve. No fluid collection. No infiltration of the tissue planes. Normal muscle bulk and density. No radiopaque foreign body or abnormal soft tissue gas. Bones are well-mineralized and reveal no fracture or aggressive appearing osseous lesions. No endosteal scalloping or marrow infiltrative process is identified on CT. Image soft tissues outside the left upper extremity reveal no significant additional unexpected findings. 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 These can be confirmed on ultrasound if patient is not an ideal candidate for MRI. A surgical consult might also be beneficial. Electronically signed by: Franco Smith MD (01/10/2020 4:47 PM) [id number]
== END | disposition home or self-care (01) ==
LOC: CT 13:35
PROVIDERS: ATTEND Orthopaedic Surgery Sports Medicine
DX: R22.32 Localized swelling, mass and lump, left upper limb (principal)
CPT/HCPCS: 73202; Q9967

== ENCOUNTER 2020-05-01 14:22 | Emergency (ER) | payer MEDICARE ==
[~2020-05-01] VITALS: Ht 170.2 cm; Wt 74.5 kg
[~2020-05-01 14:22] MED LIST changes: -IOHEXOL 300 MG/ML 100ML VIAL. IV ONE
[2020-05-01 15:19] VITALS: BP 109/68
--- NOTE | 2020-05-01 16:42 | RAD ---
EXAM: CT Head without IV contrast INDICATION: Reason: fall / Spl. Instructions: / History: TECHNIQUE: Multi-detector row CT images were obtained of the head without the use of IV contrast. All CT scans performed at this facility utilize dose optimization techniques as appropriate to the exam, including the following: Automated exposure control and adjustment of the mA and/or KV according to patient size (this includes techniques or standardized protocols for targeted exams where dose is indication/reason for exam). COMPARISON: None FINDINGS: BRAIN PARENCHYMA: No evidence of acute intraparenchymal hemorrhage or infarct. No abnormal parenchymal density or mass. VENTRICLES & EXTRA-AXIAL SPACES: Ventricles are within normal limits. Basilar cisterns are patent. No pathologic extra-axial fluid collection or mass. ORBITS: Orbital contents are unremarkable. SINUSES: Visualized paranasal sinuses and mastoid air cells are clear. OSSEOUS & SOFT TISSUES: Calvarium and skull base are intact. IMPRESSION: No acute intracranial pathology. EXAM: CT Cervical Spine without IV contrast INDICATION: Reason: fall / Spl. Instructions: / History: TECHNIQUE: Multi-detector row CT images were obtained through the cervical spine without the use of IV contrast. Post-processing sagittal and coronal reconstructed images were obtained for interpretation. All CT scans performed at this facility utilize dose optimization techniques as appropriate to the exam, including the following: Automated exposure control and adjustment of the mA and/or KV according to patient size (this includes techniques or standardized protocols for targeted exams where dose is indication/reason for exam). COMPARISON: None FINDINGS: CRANIOCERVICAL JUNCTION: Unremarkable. ALIGNMENT: Alignment is within normal limits. OSSEOUS: No evidence of fracture or bone destruction. DISC SPACES: Disc degenerative changes present in the lower cervical spine most conspicuous at C5-C6 where disc osteophyte complex and vacuum phenomenon is present with diffuse bulging FACET JOINTS: Fused bilaterally at C2-C3. No jumped facets or fractures facets are evident. There are degenerative changes in the upper cervical facet joints, notably at C4-C5 on the right. SPINAL CANAL: Unremarkable. NEUROFORAMINA: Unremarkable. SOFT TISSUES: Unremarkable. IMPRESSION: No acute traumatic findings in the cervical spine. Electronically signed by: Franco Smith MD (05/01/2020 4:39 PM) [id number]
--- NOTE | 2020-05-01 16:55 | PHYS DOC ---
Past Medical History Past Medical History: A-Fib, Bipolar, Depression, Hypertension Past Surgical History: Hysterectomy, Other Additional Past Surgical Histo: LT MASTECTOMY, BILAT KNEE REPLACEMENTS, bilat carpal tunnel Smoking Status: Never Smoker Alcohol Use: None Drug Use: None General Adult EDM: Chief Complaint: HEAD INJURY/TRAUMA HPI: HPI: History obtained from the patient. Patient is a [age]-year-old female with past medical history notable for A. fib who presents with chief complaint of head injury status post mechanical fall. States she was moving an object near her sidewalk. States she lost balance and fell backwards. She states she struck the back left portion of her head. Denies loss of consciousness. Does take Eliquis daily for her A. fib. Denies neck pain. Denies chest pain or shortness of breath. States that she wanted to be checked because she takes blood thinners. Did take Tylenol prior to arrival. Has been able to ambulate since the fall. Fall did occur 1 hour prior to arrival. No other complaints. Review of Systems: Review of Systems: Constitutional: Denies fever or chills. [] Eyes: Denies change in visual acuity. [] HENT: Denies nasal congestion or sore throat. [] Respiratory: Denies cough or shortness of breath. [] Cardiovascular: Denies chest pain or edema. [] GI: Denies abdominal pain, nausea, vomiting, bloody stools or diarrhea. [] : Denies dysuria. [] Musculoskeletal: Positive for fall Integument: Denies rash. [] Neurologic: Denies headache, focal weakness or sensory changes. [] Endocrine: Denies polyuria or polydipsia. [] Lymphatic: Denies swollen glands. [] Psychiatric: Denies depression or anxiety. [] Heart Score: Risk Factors: Risk Factors: DM, Current or recent (<one month) smoker, HTN, HLP, family history of CAD, obesity. Risk Scores: Score 0 - 3: 2.5% MACE over next 6 weeks - Discharge Home Score 4 - 6: 20.3% MACE over next 6 weeks - Admit for Clinical Observation Score 7 - 10: 72.7% MACE over next 6 weeks - Early Invasive Strategies Allergies: Allergies: Allergies Coded Allergies Type Severity Reaction Last Updated Verified No Known Drug Allergies 10/09/18 No Physical Exam: PE: Physical Exam Trauma: Primary Survey: Airway: Intact. Speaks in normal voice and phonation. Breathing: Breath sounds are clear and equal bilaterally. Circulation: Regular rhythm, 2+ and symmetric radial, DP and PT pulses. Disability: GCS on arrival was 15. Pupils 3 mm, ERRL Exposure: Complete exposure obtained and described in detail below. Secondary Survey: General: Awake, alert, appropriate, and in no acute distress HENT: Atraumatic. TMs clear bilaterally, no hemotympanum. No periorbital tenderness or deformity. No obvious craniofacial trauma. Midface is stable. No apparent dental or tongue/oropharyngeal injury. No septal hematoma. Neck: C-spine: no midline tenderness. Without step-off, deformity, abrasion, ecchymosis, or other signs of trauma. Paraspinal musculature with no tenderness and/or hypertonicity. Eyes: Pupils 3 mm ERRL, EOMI grossly, no evidence of ocular trauma, conjunctivae normal Respiratory: CTAB without wheezing, rhonchi, or rales. No distress. Chest wall with no tenderness to palpation. No crepitus, ecchymosis, or flail segment present. Cardiovascular: Regular rhythm without murmurs noted. 2+ and symmetric radial, DP and PT pulses. GI: Soft, non-tender, non-distended Musculoskeletal: T-spine: no midline tenderness. Without step-off, deformity, abrasion, ecchymosis, or other signs of trauma. Paraspinal musculature with no tenderness and/or hypertonicity. L-spine: no midline tenderness. Without step-off, deformity, abrasion, ecchymosis, or other signs of trauma. Paraspinal musculature with no tenderness and/or hypertonicity. RUE: Active ROM, no obvious deformity, no gross weakness or sensory deficits, warm & well-perfused LUE: Active ROM, no obvious deformity, no gross weakness or sensory deficits, warm & well-perfused RLE: Active ROM, no obvious deformity, no gross weakness or sensory deficits, warm & well-perfused LLE: Active ROM, no obvious deformity, no gross weakness or sensory deficits, warm & well-perfused Integument: Without abrasions, contusions, or lacerations. Neurologic: GCS on arrival as noted above. No obvious focal motor or sensory deficits on examination. Gait not assessed due to acuity of trauma assessment. Current Patient Data: Vital Signs: Vital Signs Date Time Temp Pulse Resp B/P (MAP) Pulse Ox O2 Delivery O2 Flow Rate FiO2 05/01/20 15:19 98.0 73 18 109/68 (82) 95 Room Air 98.0 EKG: EKG: [] Radiology/Procedures: Radiology/Procedures: [facility] [address] [place] [address] IMAGING REPORT Signed PATIENT: TIKI BARFIELD EACCOUNT: [id number] : 1950 LOCATION: ER AGE: 69 SEX: F EXAM STATUS: REG ER ORD. PHYSICIAN: MEG VENTURA DO REASON: fall PROCEDURE: CT HEAD AND CERVICAL SPINE WO EXAM: CT Head without IV contrast INDICATION: Reason: fall / Spl. Instructions: / History: TECHNIQUE: Multi-detector row CT images were obtained of the head without the use of IV contrast. All CT scans performed at this facility utilize dose optimization techniques as appropriate to the exam, including the following: Automated exposure control and adjustment of the mA and/or KV according to patient size (this includes techniques or standardized protocols for targeted exams where dose is indication/reason for exam). COMPARISON: None FINDINGS: BRAIN PARENCHYMA: No evidence of acute intraparenchymal hemorrhage or infarct. No abnormal parenchymal density or mass. VENTRICLES & EXTRA-AXIAL SPACES: Ventricles are within normal limits. Basilar cisterns are patent. No pathologic extra-axial fluid collection or mass. ORBITS: Orbital contents are unremarkable. SINUSES: Visualized paranasal sinuses and mastoid air cells are clear. OSSEOUS & SOFT TISSUES: Calvarium and skull base are intact. IMPRESSION: No acute intracranial pathology. EXAM: CT Cervical Spine without IV contrast INDICATION: Reason: fall / Spl. Instructions: / History: TECHNIQUE: Multi-detector row CT images were obtained through the cervical spine without the use of IV contrast. Post-processing sagittal and coronal reconstructed images were obtained for interpretation. All CT scans performed at this facility utilize dose optimization techniques as appropriate to the exam, including the following: Automated exposure control and adjustment of the mA and/or KV according to patient size (this includes techniques or standardized protocols for targeted exams where dose is indication/reason for exam). COMPARISON: None FINDINGS: CRANIOCERVICAL JUNCTION: Unremarkable. ALIGNMENT: Alignment is within normal limits. OSSEOUS: No evidence of fracture or bone destruction. DISC SPACES: Disc degenerative changes present in the lower cervical spine most conspicuous at C5-C6 where disc osteophyte complex and vacuum phenomenon is present with diffuse bulging FACET JOINTS: Fused bilaterally at C2-C3. No jumped facets or fractures facets are evident. There are degenerative changes in the upper cervical facet joints, notably at C4-C5 on the right. SPINAL CANAL: Unremarkable. NEUROFORAMINA: Unremarkable. SOFT TISSUES: Unremarkable. IMPRESSION: No acute traumatic findings in the cervical spine. Electronically signed by: Denver Smith MD (05/01/2020 4:39 PM) [id number] DICTATED and SIGNED BY: DENVER SMITH MD DATE: 05/01/20 1639 [] Course & Med Decision Making: Course & Med Decision Making Pertinent Labs and Imaging studies reviewed. (See chart for details) [] Patient is a very pleasant 69-year-old female who presents with chief complaint of head injury status post mechanical fall. Get CT imaging of the head neck negative for acute traumatic abnormality. Patient's GCS is 15. No focal neurologic deficits present. Pain well controlled. I do feel she is appropriate for discharge home with close monitoring by her . Strict return precautions were discussed and understood. Instructed to follow-up with her primary care physician in the next 2 to 3 days. Stable for discharge home. Dragon Disclaimer: Dragon Disclaimer: This electronic medical record was generated, in whole or in part, using a voice recognition dictation system. Departure Departure Impression: Primary Impression: Fall Qualified Codes: W19.XXXA - Unspecified fall, initial encounter Additional Impression: Head injury Qualified Codes: S09.90XA - Unspecified injury of head, initial encounter Disposition: 01 DC HOME SELF CARE/HOMELESS Condition: STABLE Referrals: KAMRYN HUTCHINSON MD (PCP) Patient Instructions: Head Injury, Adult Additional Instructions: Please follow-up with your primary care physician in the next 2-3 business days. MEG VENTURA DO May 01, 2020 16:55
== END 2020-05-01 17:19 | disposition home or self-care (01) ==
LOC: ER 14:22
DX: S09.8XXA Other specified injuries of head, initial encounter (principal); I48.20 Chronic atrial fibrillation, unspecified; F32.9 Major depressive disorder, single episode, unspecified; I10 Essential (primary) hypertension; Z90.710 Acquired absence of both cervix and uterus; Z98.890 Other specified postprocedural states; W18.39XA Other fall on same level, initial encounter; Y93.89 Activity, other specified; Y92.89 Other specified places as the place of occurrence of the external cause; Y99.8 Other external cause status
CPT/HCPCS: 70450; 72125; 99285

== ENCOUNTER → 2021-02-22 | Outpatient (CLI) | payer MEDICARE ==
[~2021-02-22] MED LIST changes: +BUPR150T21 PO; -BUPR150T6 PO
--- NOTE | 2021-02-22 09:25 | CARD ---
MR#: [id number] Date of Study: 02/22/2021 Ordering Physician: FAINA STONE, Referring Physician: FAINA STONE, Tech: Patrick Quiroz [facility] APPROVED REPORT EXAM: Two-dimensional and M-mode echocardiogram with Doppler and color Doppler. Other Information Quality : GoodHR: 58bpm Rhythm : NSR INDICATION Atrial Fibrillation Surgery/Intervention Atrial fib ablation 2D DIMENSIONS RVDd3.4 (2.9-3.5cm)Left Atrium(2D)4.4 (1.6-4.0cm) IVSd1.2 (0.7-1.1cm)Aortic Root(2D)3.2 (2.0-3.7cm) LVDd4.9 (3.9-5.9cm)LVOT Diameter1.8 (1.8-2.4cm) PWd1.3 (0.7-1.1cm)LVDs3.0 (2.5-4.0cm) FS (%) 39.1 %SV77.3 ml LVEF(%)69.3 (>50%) Aortic Valve AoV Peak Bradley.147.3cm/sAoV VTI31.0cm AO Peak GR.8.7mmHgLVOT Peak Bradley.124.7cm/s LVOT VTI 28.43cmAO Mean GR.4mmHg JAMES (VMAX)1.69hc6JIR (VTI)2.41cm2 Mitral Valve MV E Sgapqnhm11.5cm/sMV DECEL [id number] MV A Nsnvcswe63.6cm/sMV [id number] E/A Ratio1.3MVA (PHT)3.52cm2 TDI E/Lateral E'7.6E/Medial E'10.7 Pulmonary Valve PV Peak Ywpbulra352.3cm/sPV Peak Grad.5mmHg Tricuspid Valve TR P. Gipcoacp873ai/sTR Peak Gr.21mmHg LEFT VENTRICLE The left ventricle is normal size. There is mild concentric left ventricular hypertrophy. The left ve ntricular systolic function is normal and the ejection fraction is within normal range. EF 55% There is normal LV segmental wall motion. The left ventricular diastolic function and filling is normal for age. No left ventricle thrombus noted on this study. There is no ventricular septal defect visualize d. There is no left ventricular aneurysm. There is no mass noted in the left ventricle. RIGHT VENTRICLE The right ventricle is normal size. There is normal right ventricular wall thickness. The right ventr icular systolic function is normal. ATRIA The left atrium is moderately dilated. The right atrium size is normal. The interatrial septum is int act with no evidence for an atrial septal defect or patent foramen ovale as noted on 2-D or Doppler i maging. AORTIC VALVE The aortic valve is normal in structure and function. Doppler and Color Flow revealed no significant aortic regurgitation. There is no significant aortic valvular stenosis. There is no aortic valvular v egetation. MITRAL VALVE The mitral valve is normal in structure and function. There is no evidence of mitral valve prolapse. There is no mitral valve stenosis. Doppler and Color-flow revealed mild mitral regurgitation. TRICUSPID VALVE The tricuspid valve is normal in structure and function. Doppler and Color Flow revealed mild tricusp id regurgitation. The pulmonary artery systolic pressure is estimated at less than 30 mmHg. There is no tricuspid valve prolapse or vegetation. There is no tricuspid valve stenosis. PULMONIC VALVE Doppler and Color Flow revealed no pulmonic valvular regurgitation. There is no pulmonic valvular cipriano nosis. GREAT VESSELS The aortic root is normal in size. The ascending aorta is normal in size. The IVC is normal in size a nd collapses >50% with inspiration. PERICARDIAL EFFUSION There is no pleural effusion. There is no evidence of significant pericardial effusion. Critical Notification Critical Value: No <Conclusion> The left ventricular systolic function is normal and the ejection fraction is within normal range. EF 55% There is normal LV segmental wall motion. Signed by : Faina Stone, Electronically Approved : 02/22/2021 09:25:24
== END ==
LOC: ECHO 07:51
PROVIDERS: ATTEND Internal Medicine Cardiovascular Disease
DX: I08.1 Rheumatic disorders of both mitral and tricuspid valves (principal); I48.0 Paroxysmal atrial fibrillation
CPT/HCPCS: 93306

== ENCOUNTER → 2021-03-15 | Outpatient (CLI) | payer MEDICARE ==
--- NOTE | 2021-03-16 08:54 | CARD ---
MR#: [id number] Date of Study: 03/15/2021 Ordering Physician: FAINA STONE, Referring Physician: FAINA STONE, Tech: APPROVED REPORT Reason for procedure: Atrial fibrillation Procedure details: After proper informed consent the left chest was prepped and draped in usual sterile fashion. 20 mL of lidocaine was instilled in the left parasternal space. A 0.5 inch incision was made and a Ky[employer] ic implantable loop recorder with serial number [id number] was implanted without difficulty. The incision was then closed with steri strips. The patient tolerated the procedure well. No acute co mplications. <Conclusion> Successful implantation of a [employer] loop recorder for evaluation of atrial fibrillation. Signed by : Faina Stone, Electronically Approved : 03/16/2021 08:53:44
== END | disposition home or self-care (01) ==
LOC: LINQ 10:45
PROVIDERS: ATTEND Internal Medicine Cardiovascular Disease
DX: I48.91 Unspecified atrial fibrillation (principal); I10 Essential (primary) hypertension; E78.00 Pure hypercholesterolemia, unspecified; K21.9 Gastro-esophageal reflux disease without esophagitis; F41.9 Anxiety disorder, unspecified; F32.9 Major depressive disorder, single episode, unspecified; M19.90 Unspecified osteoarthritis, unspecified site; Z90.710 Acquired absence of both cervix and uterus; Z98.890 Other specified postprocedural states; Z79.899 Other long term (current) drug therapy; Z79.82 Long term (current) use of aspirin; Z82.49 Family history of ischemic heart disease and other diseases of the circulatory system
CPT/HCPCS: 33285; C1764

== ENCOUNTER 2021-12-20 12:14 | Emergency (ER) | payer MEDICARE ==
[~2021-12-20] VITALS: Ht 170.2 cm; Wt 70.0 kg
[~2021-12-20 12:14] MED LIST changes: +PARO25TA16 PO; -PARO25TA4 PO
[2021-12-20 12:57] LABS: BASO % 1 % (0-3); EOS # 0.2 x10^3/uL (0.0-0.7); EOS % 4 % (0-3); HEMOGLOBIN 12.2 g/dL (12.0-15.5); LYMPH # 1.3 x10^3/uL (1.0-4.8); LYMPH % 33 % (24-48); MEAN CORPUSCULAR HEMOGLOBIN 31 pg (25-35); MEAN CORPUSCULAR HGB CONC 34 g/dL (31-37); MEAN CORPUSCULAR VOLUME 93 fL (79-100); MONO # 0.4 x10^3/uL (0.0-1.1); MONO % 10 % (0-9); NEUT # 2.1 x10^3/uL (1.8-7.7); NEUT % 52 % (31-73); PLATELET COUNT 177 x10^3/uL (140-400); RED BLOOD COUNT 3.89 x10^6/uL (3.50-5.40); RED CELL DISTRIBUTION WIDTH 14.3 % (11.5-14.5)
[2021-12-20 13:05] LABS: CALCIUM 8.9 mg/dL (8.5-10.1); CREATININE 0.9 mg/dL (0.6-1.0); GFR 62.1; POTASSIUM 4.5 mmol/L (3.5-5.1)
[2021-12-20 13:11] LABS: ALBUMIN 3.5 g/dL (3.4-5.0); ALBUMIN/GLOBULIN RATIO 1.2 (1.0-1.7); TOTAL BILIRUBIN 0.4 mg/dL (0.2-1.0); TOTAL PROTEIN 6.5 g/dL (6.4-8.2)
--- NOTE | 2021-12-20 13:52 | RAD ---
PQRS Compliance Statement: One or more of the following individualized dose reduction techniques were utilized for this examinat ion: 1. Automated exposure control 2. Adjustment of the mA and/or kV according to patient size 3. Use of iterative reconstruction technique CT head without contrast 12/20/2021 1:23 PM INDICATION: Fall, trouble with depth perception COMPARISON: CT head 05/01/2020 TECHNIQUE: Multiple axial CT images of the head were obtained from skull base through the vertex with out intravenous contrast. FINDINGS: Head: Ventricles, sulci and basal cisterns are within normal limits. There is no hydrocephalus. Jennings-white matter differentiation is normal. There is no acute intracranial hemorrhage. There is no mass, mass e ffect or midline shift. Posterior fossa is normal in appearance. Visualized portions of the orbits are normal. There is tiny focus of gas immediately ventral to the l eft globe, likely external. Paranasal sinuses are well aerated. Mastoid air cells are well aerated. S calp and calvaria are normal. There is incomplete fusion of posterior arch of C1. IMPRESSION: No acute intracranial hemorrhage. Electronically signed by: Kimberlee Dawkins MD (12/20/2021 1:49 PM) [id number]
[2021-12-20 14:42] VITALS: BP 146/71
--- NOTE | 2021-12-20 14:51 | PHYS DOC ---
Past Medical History Past Medical History: A-Fib, Bipolar, Depression, Hypertension Past Surgical History: Other Additional Past Surgical Histo: afib monitor Smoking Status: Never Smoker Alcohol Use: None Drug Use: None General Adult EDM: Chief Complaint: NEAR SYNCOPE HPI: HPI: Patient is a 71 year old female who presents with the following. States that for the past several months she has had repeated falls. She is already seeing her primary care doctor for work-up. Today she came in because she misjudged a curb and fell and hit her head. No loss of consciousness chest pain or shortness of breath before or after the event. No fever or chills. No vomiting or diarrhea. Denies any dizziness currently or any near syncopal feeling. She denies having any dizziness while she is falling. She states that she feels most of her falls are missed judgments of depth. Review of Systems: Review of Systems: Constitutional: Denies fever or chills. [] Eyes: Denies change in visual acuity. [] HENT: Denies nasal congestion or sore throat. [] Respiratory: Denies cough or shortness of breath. [] Cardiovascular: Denies chest pain or edema. [] GI: Denies abdominal pain, nausea, vomiting, bloody stools or diarrhea. [] : Denies dysuria. [] Musculoskeletal: Denies back pain or joint pain. [] Integument: Denies rash. [] Neurologic: Denies headache, focal weakness or sensory changes. [] Endocrine: Denies polyuria or polydipsia. [] Lymphatic: Denies swollen glands. [] Psychiatric: Denies depression or anxiety. [] Heart Score: C/O Chest Pain: No Risk Factors: Risk Factors: DM, Current or recent (<one month) smoker, HTN, HLP, family history of CAD, obesity. Risk Scores: Score 0 - 3: 2.5% MACE over next 6 weeks - Discharge Home Score 4 - 6: 20.3% MACE over next 6 weeks - Admit for Clinical Observation Score 7 - 10: 72.7% MACE over next 6 weeks - Early Invasive Strategies Allergies: Allergies: Allergies Coded Allergies Type Severity Reaction Last Updated Verified No Known Drug Allergies 10/09/18 No Physical Exam: PE: Constitutional: Well developed, well nourished, no acute distress, non-toxic appearance. [] HENT: Normocephalic, atraumatic, bilateral external ears normal, oropharynx moist, no oral exudates, nose normal. [] Eyes: PERRLA, EOMI, conjunctiva normal, no discharge. [] Neck: Normal range of motion, no tenderness, supple, no stridor. [] Cardiovascular:Heart rate regular rhythm, no murmur [] Lungs & Thorax: Bilateral breath sounds clear to auscultation [] Abdomen: Bowel sounds normal, soft, no tenderness, no masses, no pulsatile masses. [] Skin: Warm, dry, no erythema, no rash. [] Back: No tenderness, no CVA tenderness. [] Extremities: No tenderness, no cyanosis, no clubbing, ROM intact, no edema. [] Neurologic: Alert and oriented X 3, normal motor function, normal sensory function, no focal deficits noted. [] Psychologic: Affect normal, judgement normal, mood normal. [] Current Patient Data: Labs: Laboratory Tests Test 12/20/21 12:45 White Blood Count 4.0 x10^3/uL (4.0-11.0) Red Blood Count 3.89 x10^6/uL (3.50-5.40) Hemoglobin 12.2 g/dL (12.0-15.5) Hematocrit 36.0 % (36.0-47.0) Mean Corpuscular Volume 93 fL (79-100) Mean Corpuscular Hemoglobin 31 pg (25-35) Mean Corpuscular Hemoglobin Concent 34 g/dL (31-37) Red Cell Distribution Width 14.3 % (11.5-14.5) Platelet Count 177 x10^3/uL (140-400) Neutrophils (%) (Auto) 52 % (31-73) Lymphocytes (%) (Auto) 33 % (24-48) Monocytes (%) (Auto) 10 % (0-9) H Eosinophils (%) (Auto) 4 % (0-3) H Basophils (%) (Auto) 1 % (0-3) Neutrophils # (Auto) 2.1 x10^3/uL (1.8-7.7) Lymphocytes # (Auto) 1.3 x10^3/uL (1.0-4.8) Monocytes # (Auto) 0.4 x10^3/uL (0.0-1.1) Eosinophils # (Auto) 0.2 x10^3/uL (0.0-0.7) Basophils # (Auto) 0.0 x10^3/uL (0.0-0.2) Sodium Level 139 mmol/L (136-145) Potassium Level 4.5 mmol/L (3.5-5.1) Chloride Level 109 mmol/L (98-107) H Carbon Dioxide Level 23 mmol/L (21-32) Anion Gap 7 (6-14) Blood Urea Nitrogen 16 mg/dL (7-20) Creatinine 0.9 mg/dL (0.6-1.0) Estimated GFR (Cockcroft-Gault) 62.1 BUN/Creatinine Ratio 18 (6-20) Glucose Level 104 mg/dL (70-99) H Calcium Level 8.9 mg/dL (8.5-10.1) Total Bilirubin 0.4 mg/dL (0.2-1.0) Aspartate Amino Transferase (AST) 14 U/L (15-37) L Alanine Aminotransferase (ALT) 21 U/L (14-59) Alkaline Phosphatase 64 U/L (46-116) Troponin I High Sensitivity 6 ng/L (4-50) Total Protein 6.5 g/dL (6.4-8.2) Albumin 3.5 g/dL (3.4-5.0) Albumin/Globulin Ratio 1.2 (1.0-1.7) Laboratory Tests 12/20/21 12:45 Laboratory Tests 12/20/21 12:45 Vital Signs: Vital Signs Date Time Temp Pulse Resp B/P (MAP) Pulse Ox O2 Delivery O2 Flow Rate FiO2 12/20/21 14:42 50 20 146/71 (96) 98 12/20/21 12:24 98.0 Room Air 98.0 EKG: EKG: [] Radiology/Procedures: Radiology/Procedures: [] Course & Med Decision Making: Course & Med Decision Making Pertinent Labs and Imaging studies reviewed. (See chart for details) Patient's work-up is completely unremarkable. I suspect her falls are secondary to [place] chronic issues which her primary care doctor is working up. In the meantime I suggest she use a cane for ambulation [place] Disclaimer: [place] Disclaimer: This electronic medical record was generated, in whole or in part, using a voice recognition dictation system. Departure Departure Impression: Primary Impression: Scalp hematoma Disposition: HOME / SELF CARE / HOMELESS Condition: GOOD Referrals: KAMRYN HUTCHINSON MD (PCP) Patient Instructions: Facial or Scalp Contusion ROBERT MAIER MD December 20, 2021 14:51
--- NOTE | 2021-12-21 09:07 | EKG ---
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
== END 2021-12-20 15:27 | disposition home or self-care (01) ==
LOC: ER 12:14
DX: S00.03XA Contusion of scalp, initial encounter (principal); I48.91 Unspecified atrial fibrillation; F31.9 Bipolar disorder, unspecified; I10 Essential (primary) hypertension; R29.6 Repeated falls; W17.89XA Other fall from one level to another, initial encounter; Y93.89 Activity, other specified; Y92.89 Other specified places as the place of occurrence of the external cause; Y99.8 Other external cause status
CPT/HCPCS: 36415; 70450; 80053; 84484; 85025; 93005; 99285